=== PATIENT | male | born 1960 | race Caucasian/White ===

== ENCOUNTER 2016-11-16 06:01 | Day surgery (SDC) | payer MEDICARE, OTHER ==
[2016-11-15 09:52] LABS: ASPARTATE AMINO TRANSFERASE 13 U/L (15-37); BLOOD UREA NITROGEN 15 mg/dL (7-18)
[~2016-11-16] VITALS: Ht 190.5 cm; Wt 102.8 kg
[~2016-11-16 06:01] MED LIST: ACET325T14 PO; AMLO10TA2 PO; ATOR40TA PO; CARV-39 PO; GABA100C PO; GLIP10TA13 PO; INSU100V8 SQ; LOSA1TAB17 PO; METF500T4 PO; POTA20TA6 PO; SERT100T5 PO
[2016-11-16] MEDS ORDERED: LACTATED RINGERS 1,000 ML IV SCH (06:34)
[2016-11-16 06:37] VITALS: BP 135/77
[2016-11-16] MEDS ORDERED: BUPIVACAINE/PF 0.5% ONE (07:05)
[2016-11-16] MEDS ORDERED: FENTANYL PF 100 MCG/2ML ONE ×2 (07:16→08:55)
[2016-11-16] MEDS ORDERED: MIDAZOLAM 1 MG/ML, 2ML ONE (07:16)
[2016-11-16] MEDS ORDERED: PROMETHAZINE 25 MG/ML, 1ML IV PRN (07:30)
[2016-11-16] MEDS ORDERED: LABETALOL 5MG/ML, 20ML IV PRN (07:30)
[2016-11-16] MEDS ORDERED: hydrALAzine 20 MG/ML, 1ML IV PRN (07:30)
[2016-11-16] MEDS ORDERED: ALBUTEROL SULFATE 2.5 MG/3 ML NPPB PRN (07:30)
[2016-11-16] MEDS ORDERED: METOCLOPRAMIDE 5 MG/ML, 2ML IV PRN (07:30)
[2016-11-16] MEDS ORDERED: ONDANSETRON 2MG/ML, 2ML IVPush PRN (07:30)
[2016-11-16] MEDS ORDERED: FENTANYL PF 100 MCG/2ML IV PRN (07:30)
[2016-11-16] MEDS ORDERED: HYDROcodone/APAP 7.5-325MG/15ML UDC PO PRN (07:30)
[2016-11-16] MEDS ORDERED: OXYcodone 5 MG/5 ML ORAL.SOL UDC PO PRN (07:30)
[2016-11-16] MEDS ORDERED: METOPROLOL 1 MG/ML, 5ML IV PRN (07:30)
[2016-11-16] MEDS ORDERED: HYDROmorphone 1 MG/ML, 1ML IV PRN (07:30)
[2016-11-16] MEDS ORDERED: ACETAMINOPHEN 325 MG TABLET PO PRN (07:30)
[2016-11-16] MEDS ORDERED: KETOROLAC 30 MG/1 ML IV PRN (07:30)
[2016-11-16] MEDS ORDERED: EPHEDRINE 50 MG/ML, 1ML IVPush PRN (07:30)
[2016-11-16] MEDS ORDERED: PROPOFOL 10 MG/ML, 20ML ONE (07:35)
[2016-11-16] MEDS ORDERED: ROCURONIUM 10 MG/ML ONE (07:35)
[2016-11-16] MEDS ORDERED: DEXAMETHASONE 4 MG/ML, 1ML ONE (07:35)
[2016-11-16] MEDS ORDERED: ONDANSETRON 2MG/ML, 2ML ONE ×2 (07:35→08:43)
[2016-11-16] MEDS ORDERED: CEFAZOLIN 1,000 MG ONE (07:35)
[2016-11-16] MEDS ORDERED: SUCCINYLCHOLINE 20 MG/ML, 10ML ONE (07:35)
[2016-11-16] MEDS ORDERED: ACETAMINOPHEN 650 MG/20.3 ML UDC ONE (08:55)
[2016-11-16] MEDS ORDERED: OXYcodone 5 MG/5 ML ORAL.SOL UDC ONE (08:56)
[2016-11-16] MEDS ORDERED: HYDROcodone/APAP 5/325 TABLET ONE (10:11)
[2016-11-16] MEDS ORDERED: HYDROcodone/APAP 5/325 TABLET PO PRN (10:30)
== END 2016-11-16 11:10 ==
LOC: OUT 06:01
PROVIDERS: ATTEND Surgery Vascular Surgery
DX: E11.52 Type 2 diabetes mellitus with diabetic peripheral angiopathy with gangrene (principal); I73.9 Peripheral vascular disease, unspecified; F41.9 Anxiety disorder, unspecified; F32.9 Major depressive disorder, single episode, unspecified; E78.5 Hyperlipidemia, unspecified; I10 Essential (primary) hypertension; E03.9 Hypothyroidism, unspecified; Z87.440 Personal history of urinary (tract) infections; Z98.890 Other specified postprocedural states; Z72.89 Other problems related to lifestyle; Z87.891 Personal history of nicotine dependence
CPT/HCPCS: 28820; 36415; 80053; 82962; 88305; 88311; 93005; J0330; J0690; J1100; J2250; J2405; J2704; J3010; J3490; J7120

== ENCOUNTER 2016-12-16 11:48 | Day surgery (SDC) | payer MEDICARE ==
[2016-12-16] MEDS ORDERED: SODIUM CHLORIDE 0.9% 1,000 ML IV SCH (12:30)
[2016-12-16 12:33] VITALS: BP 124/82
[2016-12-16 12:57] LABS: HEMATOCRIT 52.6 % (39.2-51.8); HEMOGLOBIN 17.5 g/dL (13.7-18.0); WHITE BLOOD COUNT 14.7 x10^3/uL (3.4-10)
[2016-12-16] MEDS ORDERED: LIDOCAINE 2%, 20ML ONE (13:00)
[2016-12-16 13:01] LABS: BLOOD UREA NITROGEN 11 mg/dL (7-18)
[2016-12-16] MEDS ORDERED: NITROGLYCERIN 5 MG/ML, 10ML ONE (13:21)
[2016-12-16] MEDS ORDERED: MIDAZOLAM 1 MG/ML, 5ML ONE (13:21)
[2016-12-16] MEDS ORDERED: FLUMAZENIL 0.1 MG/1 ML, 5ML ONE (13:21)
[2016-12-16] MEDS ORDERED: FENTANYL PF 100 MCG/2ML ONE (13:21)
[2016-12-16] MEDS ORDERED: HEPARIN 1,000 UNITS/ML, 10ML ONE (13:22)
[2016-12-16] MEDS ORDERED: NALOXONE 1 MG/ML, 2ML ONE (13:22)
[2016-12-16] MEDS ORDERED: PROTAMINE SULFATE 10 MG/ML, 25ML ONE (13:22)
[2016-12-16 14:06] LABS: DIFF TOTAL CELLS COUNTED 200 CELL DIFF
[2016-12-16 14:07] LABS: SMUDGE CELLS 1+; VERIFY COUNTS? YES
[2016-12-16] MEDS ORDERED: VISIPAQUE 270 MG/ML, 150ML BOTTLE ONE (14:30)
== END 2016-12-16 18:50 | disposition home or self-care (01) ==
LOC: OUT 11:48
PROVIDERS: ATTEND Surgery Vascular Surgery
DX: I73.9 Peripheral vascular disease, unspecified (principal)
CPT/HCPCS: 36245; 36415; 75630; 76937; 80048; 85025; C1751; C1769; C1894; J2250; J3010; J3490; Q9966; J1644; J2720; J2310

== ENCOUNTER → 2017-01-10 | Outpatient (CLI) | payer MEDICARE ==
[~2017-01-10] MED LIST changes: +HYDR-3240 PO; -LOSA1TAB17 PO; +LOSA1TAB22 PO; +SULF1TAB24 PO
== END | disposition home or self-care (01) ==
LOC: WOUND 08:34
PROVIDERS: ATTEND Physician Assistant
DX: T81.31XD Disruption of external operation (surgical) wound, not elsewhere classified, subsequent encounter (principal); E11.621 Type 2 diabetes mellitus with foot ulcer; L97.521 Non-pressure chronic ulcer of other part of left foot limited to breakdown of skin; L97.421 Non-pressure chronic ulcer of left heel and midfoot limited to breakdown of skin; E11.51 Type 2 diabetes mellitus with diabetic peripheral angiopathy without gangrene; I10 Essential (primary) hypertension; F41.9 Anxiety disorder, unspecified; K21.9 Gastro-esophageal reflux disease without esophagitis; E78.5 Hyperlipidemia, unspecified; Z87.891 Personal history of nicotine dependence; Y83.8 Other surgical procedures as the cause of abnormal reaction of the patient, or of later complication, without mention of misadventure at the time of the procedure
CPT/HCPCS: 11042; 97597; G0463; WOU0463

== ENCOUNTER → 2017-01-14 | Outpatient (CLI) | payer MEDICARE | END | disposition home or self-care (01) | LOC: WOUND 10:59 | PROVIDERS: ATTEND Physician Assistant | DX: T81.31XD Disruption of external operation (surgical) wound, not elsewhere classified, subsequent encounter (principal); E11.621 Type 2 diabetes mellitus with foot ulcer; L97.421 Non-pressure chronic ulcer of left heel and midfoot limited to breakdown of skin; L97.521 Non-pressure chronic ulcer of other part of left foot limited to breakdown of skin; I10 Essential (primary) hypertension; F41.9 Anxiety disorder, unspecified; K21.9 Gastro-esophageal reflux disease without esophagitis; E78.5 Hyperlipidemia, unspecified; Z87.891 Personal history of nicotine dependence; E11.52 Type 2 diabetes mellitus with diabetic peripheral angiopathy with gangrene; Y83.8 Other surgical procedures as the cause of abnormal reaction of the patient, or of later complication, without mention of misadventure at the time of the procedure | CPT/HCPCS: 11044; 97597 ==

== ENCOUNTER → 2017-01-18 | Outpatient (CLI) | payer MEDICARE | END | disposition home or self-care (01) | LOC: CFH 12:12 | PROVIDERS: ATTEND Family Medicine | DX: I99.9 Unspecified disorder of circulatory system (principal); E11.621 Type 2 diabetes mellitus with foot ulcer | CPT/HCPCS: 71020 ==

== ENCOUNTER → 2017-01-28 | Outpatient (CLI) | payer MEDICARE | END | disposition home or self-care (01) | LOC: WOUND 10:20 | PROVIDERS: ATTEND Family Medicine | DX: T87.81 Dehiscence of amputation stump (principal); E11.621 Type 2 diabetes mellitus with foot ulcer; L97.421 Non-pressure chronic ulcer of left heel and midfoot limited to breakdown of skin; L97.521 Non-pressure chronic ulcer of other part of left foot limited to breakdown of skin; E11.52 Type 2 diabetes mellitus with diabetic peripheral angiopathy with gangrene; I10 Essential (primary) hypertension; F41.9 Anxiety disorder, unspecified; K21.9 Gastro-esophageal reflux disease without esophagitis; E78.5 Hyperlipidemia, unspecified; F17.200 Nicotine dependence, unspecified, uncomplicated; Z89.511 Acquired absence of right leg below knee; Y83.5 Amputation of limb(s) as the cause of abnormal reaction of the patient, or of later complication, without mention of misadventure at the time of the procedure | CPT/HCPCS: 97597 ==

== ENCOUNTER → 2017-02-04 | Outpatient (CLI) | payer MEDICARE | END | disposition home or self-care (01) | LOC: WOUND 10:42 | PROVIDERS: ATTEND Family Medicine | DX: T81.31XD Disruption of external operation (surgical) wound, not elsewhere classified, subsequent encounter (principal); E11.621 Type 2 diabetes mellitus with foot ulcer; L97.521 Non-pressure chronic ulcer of other part of left foot limited to breakdown of skin; L97.421 Non-pressure chronic ulcer of left heel and midfoot limited to breakdown of skin; I10 Essential (primary) hypertension; F41.9 Anxiety disorder, unspecified; K21.9 Gastro-esophageal reflux disease without esophagitis; E78.5 Hyperlipidemia, unspecified; E11.52 Type 2 diabetes mellitus with diabetic peripheral angiopathy with gangrene; Z89.511 Acquired absence of right leg below knee; Z87.891 Personal history of nicotine dependence; Y83.8 Other surgical procedures as the cause of abnormal reaction of the patient, or of later complication, without mention of misadventure at the time of the procedure | CPT/HCPCS: 11042; 97597 ==

== ENCOUNTER → 2017-02-11 | Outpatient (CLI) | payer MEDICARE | END | disposition home or self-care (01) | LOC: WOUND 10:48 | PROVIDERS: ATTEND Family Medicine | DX: T87.81 Dehiscence of amputation stump (principal); E11.621 Type 2 diabetes mellitus with foot ulcer; L97.521 Non-pressure chronic ulcer of other part of left foot limited to breakdown of skin; L97.421 Non-pressure chronic ulcer of left heel and midfoot limited to breakdown of skin; I10 Essential (primary) hypertension; K21.9 Gastro-esophageal reflux disease without esophagitis; E78.5 Hyperlipidemia, unspecified; E11.52 Type 2 diabetes mellitus with diabetic peripheral angiopathy with gangrene; F41.9 Anxiety disorder, unspecified; Z89.511 Acquired absence of right leg below knee; Z87.891 Personal history of nicotine dependence; Y83.5 Amputation of limb(s) as the cause of abnormal reaction of the patient, or of later complication, without mention of misadventure at the time of the procedure | CPT/HCPCS: 11042; 97597 ==

== ENCOUNTER → 2017-02-18 | Outpatient (CLI) | payer MEDICARE | END | disposition home or self-care (01) | LOC: WOUND 09:21 | PROVIDERS: ATTEND Family Medicine | DX: T81.31XD Disruption of external operation (surgical) wound, not elsewhere classified, subsequent encounter (principal); E11.621 Type 2 diabetes mellitus with foot ulcer; L97.521 Non-pressure chronic ulcer of other part of left foot limited to breakdown of skin; L97.421 Non-pressure chronic ulcer of left heel and midfoot limited to breakdown of skin; I10 Essential (primary) hypertension; E11.52 Type 2 diabetes mellitus with diabetic peripheral angiopathy with gangrene; E78.5 Hyperlipidemia, unspecified; F41.9 Anxiety disorder, unspecified; K21.9 Gastro-esophageal reflux disease without esophagitis; Z89.511 Acquired absence of right leg below knee; Z87.891 Personal history of nicotine dependence; Y83.8 Other surgical procedures as the cause of abnormal reaction of the patient, or of later complication, without mention of misadventure at the time of the procedure | CPT/HCPCS: 97597 ==

== ENCOUNTER → 2017-02-25 | Outpatient (CLI) | payer MEDICARE | END | disposition home or self-care (01) | LOC: WOUND 10:00 | PROVIDERS: ATTEND Family Medicine | DX: T87.89 Other complications of amputation stump (principal); E11.621 Type 2 diabetes mellitus with foot ulcer; L97.521 Non-pressure chronic ulcer of other part of left foot limited to breakdown of skin; L97.421 Non-pressure chronic ulcer of left heel and midfoot limited to breakdown of skin; I10 Essential (primary) hypertension; K21.9 Gastro-esophageal reflux disease without esophagitis; E78.5 Hyperlipidemia, unspecified; F41.9 Anxiety disorder, unspecified; E11.52 Type 2 diabetes mellitus with diabetic peripheral angiopathy with gangrene; Z87.891 Personal history of nicotine dependence; Z89.511 Acquired absence of right leg below knee; Y83.5 Amputation of limb(s) as the cause of abnormal reaction of the patient, or of later complication, without mention of misadventure at the time of the procedure | CPT/HCPCS: 11042 ==

== ENCOUNTER → 2017-03-04 | Outpatient (CLI) | payer MEDICARE | END | disposition home or self-care (01) | LOC: WOUND 09:52 | PROVIDERS: ATTEND Family Medicine | DX: T87.89 Other complications of amputation stump (principal); E11.621 Type 2 diabetes mellitus with foot ulcer; L97.521 Non-pressure chronic ulcer of other part of left foot limited to breakdown of skin; L97.421 Non-pressure chronic ulcer of left heel and midfoot limited to breakdown of skin; E11.52 Type 2 diabetes mellitus with diabetic peripheral angiopathy with gangrene; I10 Essential (primary) hypertension; F41.9 Anxiety disorder, unspecified; K21.9 Gastro-esophageal reflux disease without esophagitis; E78.5 Hyperlipidemia, unspecified; Z87.891 Personal history of nicotine dependence; Y83.5 Amputation of limb(s) as the cause of abnormal reaction of the patient, or of later complication, without mention of misadventure at the time of the procedure | CPT/HCPCS: 11042 ==

== ENCOUNTER → 2017-03-18 | Outpatient (CLI) | payer MEDICARE | END | disposition home or self-care (01) | LOC: WOUND 09:41 | PROVIDERS: ATTEND Family Medicine | DX: T87.89 Other complications of amputation stump (principal); E11.621 Type 2 diabetes mellitus with foot ulcer; L97.522 Non-pressure chronic ulcer of other part of left foot with fat layer exposed; L97.421 Non-pressure chronic ulcer of left heel and midfoot limited to breakdown of skin; L84 Corns and callosities; I10 Essential (primary) hypertension; F41.9 Anxiety disorder, unspecified; K21.9 Gastro-esophageal reflux disease without esophagitis; E78.5 Hyperlipidemia, unspecified; E11.52 Type 2 diabetes mellitus with diabetic peripheral angiopathy with gangrene; Z87.891 Personal history of nicotine dependence; Z89.412 Acquired absence of left great toe; Z89.511 Acquired absence of right leg below knee; Y83.5 Amputation of limb(s) as the cause of abnormal reaction of the patient, or of later complication, without mention of misadventure at the time of the procedure | CPT/HCPCS: 11042 ==

== ENCOUNTER → 2017-03-25 | Outpatient (CLI) | payer MEDICARE | END | disposition home or self-care (01) | LOC: WOUND 09:42 | PROVIDERS: ATTEND Family Medicine | DX: T81.31XD Disruption of external operation (surgical) wound, not elsewhere classified, subsequent encounter (principal); E11.621 Type 2 diabetes mellitus with foot ulcer; L97.521 Non-pressure chronic ulcer of other part of left foot limited to breakdown of skin; L97.421 Non-pressure chronic ulcer of left heel and midfoot limited to breakdown of skin; I10 Essential (primary) hypertension; E11.52 Type 2 diabetes mellitus with diabetic peripheral angiopathy with gangrene; K21.9 Gastro-esophageal reflux disease without esophagitis; E78.5 Hyperlipidemia, unspecified; F41.9 Anxiety disorder, unspecified; Z89.412 Acquired absence of left great toe; Z89.511 Acquired absence of right leg below knee; Z87.891 Personal history of nicotine dependence; Y83.8 Other surgical procedures as the cause of abnormal reaction of the patient, or of later complication, without mention of misadventure at the time of the procedure | CPT/HCPCS: 11042 ==

== ENCOUNTER → 2017-04-22 | Outpatient (CLI) | payer MEDICARE | END | disposition home or self-care (01) | LOC: WOUND 09:47 | PROVIDERS: ATTEND Family Medicine | DX: T87.89 Other complications of amputation stump (principal); E11.621 Type 2 diabetes mellitus with foot ulcer; L97.521 Non-pressure chronic ulcer of other part of left foot limited to breakdown of skin; I10 Essential (primary) hypertension; F41.9 Anxiety disorder, unspecified; K21.9 Gastro-esophageal reflux disease without esophagitis; E11.52 Type 2 diabetes mellitus with diabetic peripheral angiopathy with gangrene; L84 Corns and callosities; I96 Gangrene, not elsewhere classified; E78.5 Hyperlipidemia, unspecified; Z89.412 Acquired absence of left great toe; Z89.511 Acquired absence of right leg below knee; Z87.891 Personal history of nicotine dependence; Y83.5 Amputation of limb(s) as the cause of abnormal reaction of the patient, or of later complication, without mention of misadventure at the time of the procedure | CPT/HCPCS: 11042 ==

== ENCOUNTER → 2017-04-29 | Outpatient (CLI) | payer MEDICARE | END | disposition home or self-care (01) | LOC: WOUND 10:07 | PROVIDERS: ATTEND Family Medicine | DX: T87.89 Other complications of amputation stump (principal); E11.621 Type 2 diabetes mellitus with foot ulcer; L97.521 Non-pressure chronic ulcer of other part of left foot limited to breakdown of skin; E11.52 Type 2 diabetes mellitus with diabetic peripheral angiopathy with gangrene; I10 Essential (primary) hypertension; K21.9 Gastro-esophageal reflux disease without esophagitis; L84 Corns and callosities; E78.5 Hyperlipidemia, unspecified; F41.9 Anxiety disorder, unspecified; Z87.891 Personal history of nicotine dependence; Z89.511 Acquired absence of right leg below knee; Y83.5 Amputation of limb(s) as the cause of abnormal reaction of the patient, or of later complication, without mention of misadventure at the time of the procedure | CPT/HCPCS: 97597 ==

== ENCOUNTER → 2017-05-27 | Outpatient (CLI) | payer MEDICARE | END | disposition home or self-care (01) | LOC: WOUND 13:07 | PROVIDERS: ATTEND Family Medicine | DX: T81.31XD Disruption of external operation (surgical) wound, not elsewhere classified, subsequent encounter (principal); E11.621 Type 2 diabetes mellitus with foot ulcer; L97.521 Non-pressure chronic ulcer of other part of left foot limited to breakdown of skin; I10 Essential (primary) hypertension; F41.9 Anxiety disorder, unspecified; E11.52 Type 2 diabetes mellitus with diabetic peripheral angiopathy with gangrene; I96 Gangrene, not elsewhere classified; E78.5 Hyperlipidemia, unspecified; Z89.412 Acquired absence of left great toe; Z89.511 Acquired absence of right leg below knee; Z87.891 Personal history of nicotine dependence; Y83.8 Other surgical procedures as the cause of abnormal reaction of the patient, or of later complication, without mention of misadventure at the time of the procedure | CPT/HCPCS: 97597 ==

== ENCOUNTER → 2017-06-10 | Outpatient (CLI) | payer MEDICARE | END | disposition home or self-care (01) | LOC: WOUND 09:41 | PROVIDERS: ATTEND Family Medicine | DX: T87.89 Other complications of amputation stump (principal); T81.31XD Disruption of external operation (surgical) wound, not elsewhere classified, subsequent encounter; E11.621 Type 2 diabetes mellitus with foot ulcer; L97.521 Non-pressure chronic ulcer of other part of left foot limited to breakdown of skin; E11.51 Type 2 diabetes mellitus with diabetic peripheral angiopathy without gangrene; I96 Gangrene, not elsewhere classified; E78.5 Hyperlipidemia, unspecified; K21.9 Gastro-esophageal reflux disease without esophagitis; L84 Corns and callosities; F41.9 Anxiety disorder, unspecified; I10 Essential (primary) hypertension; Z87.891 Personal history of nicotine dependence; Y83.5 Amputation of limb(s) as the cause of abnormal reaction of the patient, or of later complication, without mention of misadventure at the time of the procedure; Y83.8 Other surgical procedures as the cause of abnormal reaction of the patient, or of later complication, without mention of misadventure at the time of the procedure | CPT/HCPCS: 97597 ==

== ENCOUNTER 2018-04-27 17:41 | Inpatient (IN) | payer MEDICARE ==
[~2018-04-27] VITALS: Ht 121.9 cm; Wt 107.2 kg
[~2018-04-27 17:41] MED LIST changes: -AMLO10TA2 PO; +AMLO10TA8 PO; +ASPI-650 PO; +CEFT600V IV; +HYDR-3241 PO; +HYDR2VIA2 IVPush; +INSU100I13 SQ-INSULIN; +METF500T17 PO; -METF500T4 PO; +SERT100T32 PO; -SERT100T5 PO; +TAMS-11 PO
[2018-04-27 18:33] LABS: MEAN CORPUSCULAR HEMOGLOBIN 21.7 pg (27.5-34.5); MEAN CORPUSCULAR HGB CONC 32.9 g/dL (33.2-36.2); MEAN CORPUSCULAR VOLUME 66.1 fL (81-97); MEAN PLATELET VOLUME 7.4 fL (7.4-10.4); PLATELET COUNT 602 x10^3/uL (130-400); RED BLOOD COUNT 7.23 x10^6/uL (4.38-5.82); RED CELL DISTRIBUTION WIDTH 19.2 % (9.4-14.8)
--- NOTE | 2018-04-27 18:38 | NUR ---
Pt reports intermitent scrotal swelling x2-3 weeks, prescribed Lasix on tuesday, has not taken any doses yet. Reports he has been urinating more often but otherwise not urinary symptoms. Reports sob upon exertion.
[2018-04-27 18:41] LABS: ALANINE AMINOTRANSFERASE 21 U/L (12-78); ALBUMIN 3.1 g/dL (3.4-5.0); ANION GAP 8 mmol/L (5-15); CALCIUM 7.7 mg/dL (8.5-10.1); CHLORIDE 99 mmol/L (98-107); CREATININE 0.97 mg/dL (0.7-1.3)
[2018-04-27 18:46] LABS: ALKALINE PHOSPHATASE 260 U/L (45-117); BILIRUBIN,TOTAL 0.9 mg/dL (0.2-1.0); MD YES; TROPONIN I < 0.015 ng/mL (0.000-0.045)
[2018-04-27 18:50] LABS: <PLATELET ESTIMATE> INCREASED; <PLT MORPHOLOGY> NORMAL PLT MORPH; BAND#(MANUAL) 1.79 x10^3/uL; BANDS%(MANUAL) 14 % (0-7); EOS#(MANUAL) 0.51 x10^3/uL (0.0-0.4); EOS% (MANUAL) 4 % (1-7); LYMPH#(MANUAL) 1.28 x10^3/uL (1-3.4); LYMPHS% (MANUAL) 10 % (22-44); METAMYELOCYTES# (MANUAL) 0.13 x10^3/uL (0-0); METAMYELOCYTES% (MANUAL) 1 % (0-1); MONOS#(MANUAL) 1.02 x10^3/uL (0.3-2.7); MONOS% (MANUAL) 8 % (2-9); MYELOCYTES# (MANUAL) 0.26 x10^3/uL (0-0); MYELOCYTES% (MANUAL) 2 % (0-0); SEG#(MANUAL) 7.81 x10^3/uL (1.8-6.8); SEGS% (MANUAL) 61 % (42-75)
[2018-04-27 18:51] LABS: ANISOCYTOSIS 2+; MICROCYTOSIS 2+; OVALOCYTES 1+; POLYCHROMASIA 1+
[2018-04-27] MEDS ORDERED: SODIUM CHLORIDE FLUSH 10ML SYR IVF ONE (19:00)
[2018-04-27] MEDS ORDERED: FUROSEMIDE 40 MG/4 ML ONE (19:26)
[2018-04-27] MEDS ORDERED: FUROSEMIDE 40 MG/4 ML IV ONE (19:30)
--- NOTE | 2018-04-27 19:56 | NUR ---
UA obtained, pt medicated per [facility]AR, 5 rights observed, pt to US at this time, family req to let pt drink coffee, pt and family aware of NPO until further notice
[2018-04-27 19:57] LABS: MICROSCOPIC AUTO
[2018-04-27 19:59] LABS: CULTURE INDICATED? NO
[2018-04-27] MEDS ORDERED: AMPICILLIN/SULBACTAM 3 GM in SODIUM CHLORIDE 0.9% 100 ML IV ONE (20:30)
--- NOTE | 2018-04-27 20:37 | NUR ---
BREAK RN: Dr. Yepez at bedside to evaluate pt for admission.
[2018-04-27] MEDS ORDERED: METF500T17 PO (20:42)
[2018-04-27] MEDS ORDERED: POTA20TA6 PO (20:42)
[2018-04-27] MEDS ORDERED: GLIP10TA13 PO (20:42)
[2018-04-27] MEDS ORDERED: ASPI-515 PO (20:42)
[2018-04-27] MEDS ORDERED: INSU100I13 SC (20:42)
--- NOTE | 2018-04-27 20:59 | NUR ---
Report to [facility], pt ready for transport.
[2018-04-27 21:25] VITALS: BP 171/79
[2018-04-27] MEDS: POTASSIUM CHLORIDE 20 MEQ TAB.ER.PRT PO SCH (21:43)
[2018-04-27] MEDS: FUROSEMIDE 20 MG/2 ML IVPush SCH (21:43)
[2018-04-27] MEDS: HEPARIN 5,000 UNITS/ML, 1ML SQ SCH (21:43)
[2018-04-27] MEDS: CARVEDILOL 25 MG TABLET PO SCH (21:44)
[2018-04-27 21:47] LABS: TROPONIN I < 0.015 ng/mL (0.000-0.045)
[2018-04-27 21:52] VITALS: BP 171/79
[2018-04-27] MEDS ORDERED: GABAPENTIN 100 MG CAPSULE PO ONE (22:30)
[2018-04-28 00:24] VITALS: BP 126/69
[2018-04-28 03:42] LABS: TROPONIN I < 0.015 ng/mL (0.000-0.045)
[2018-04-28] MEDS: HEPARIN 5,000 UNITS/ML, 1ML SQ SCH ×3 (05:13→20:27)
[2018-04-28] MEDS: CARVEDILOL 25 MG TABLET PO SCH ×2 (05:13→16:57)
[2018-04-28 08:52] LABS: MEAN CORPUSCULAR HEMOGLOBIN 21.3 pg (27.5-34.5); MEAN CORPUSCULAR VOLUME 66.6 fL (81-97); MEAN PLATELET VOLUME 7.3 fL (7.4-10.4); PLATELET COUNT 540 x10^3/uL (130-400); RED BLOOD COUNT 7.04 x10^6/uL (4.38-5.82); RED CELL DISTRIBUTION WIDTH 19.2 % (9.4-14.8)
[2018-04-28] MEDS: LOSARTAN 50MG TABLET PO SCH (08:57)
[2018-04-28] MEDS: GABAPENTIN 100 MG CAPSULE PO SCH ×3 (08:57→20:27)
[2018-04-28] MEDS: POTASSIUM CHLORIDE 20 MEQ TAB.ER.PRT PO SCH (08:57)
[2018-04-28] MEDS: SERTRALINE 100MG TABLET PO SCH (08:57)
[2018-04-28] MEDS: AMLODIPINE 10 MG TAB PO SCH (08:57)
[2018-04-28] MEDS: FUROSEMIDE 20 MG/2 ML IVPush SCH ×2 (08:57→20:26)
[2018-04-28] MEDS: ASPIRIN 81 MG TABLET EC PO SCH (08:57)
[2018-04-28] MEDS ORDERED: HYDROCHLOROTHIAZIDE 25 MG TABLET PO SCH (09:00)
[2018-04-28 09:04] LABS: ALANINE AMINOTRANSFERASE 19 U/L (12-78); ANION GAP 6 mmol/L (5-15); CHLORIDE 99 mmol/L (98-107); CREATININE 1.04 mg/dL (0.7-1.3)
[2018-04-28 09:07] LABS: ALKALINE PHOSPHATASE 227 U/L (45-117); TOTAL PROTEIN 5.9 g/dL (6.4-8.2)
[2018-04-28 09:09] LABS: TROPONIN I < 0.015 ng/mL (0.000-0.045)
[2018-04-28] MEDS: INSULIN GLARGINE 100 UNITS/ML, PEN SQ-INSULIN SCH (09:53)
[2018-04-28 10:04] LABS: MD YES
[2018-04-28 10:07] LABS: BAND#(MANUAL) 0.24 x10^3/uL; BANDS%(MANUAL) 2 % (0-7); EOS#(MANUAL) 0.12 x10^3/uL (0.0-0.4); EOS% (MANUAL) 1 % (1-7); LYMPHS% (MANUAL) 16 % (22-44); METAMYELOCYTES# (MANUAL) 0.12 x10^3/uL (0-0); METAMYELOCYTES% (MANUAL) 1 % (0-1); MONOS#(MANUAL) 0.83 x10^3/uL (0.3-2.7); MONOS% (MANUAL) 7 % (2-9); MYELOCYTES# (MANUAL) 0.24 x10^3/uL (0-0); MYELOCYTES% (MANUAL) 2 % (0-0)
[2018-04-28 10:21] LABS: BASOS#(MANUAL) 0.95 x10^3/uL (0-0.1); BASOS% (MANUAL) 8 % (0-1); SEGS% (MANUAL) 63 % (42-75)
[2018-04-28 10:22] LABS: NRBC % (MANUAL) 1 % (0-1)
[2018-04-28 10:23] LABS: <PLATELET ESTIMATE> INCREASED; <PLT MORPHOLOGY> NORMAL PLT MORPH; ANISOCYTOSIS 1+; MICROCYTOSIS 2+; OVALOCYTES 1+; POLYCHROMASIA 1+
[2018-04-28] MEDS ORDERED: DEXTROSE 50%, 50ML SYRINGE IVPush PRN (11:30)
[2018-04-28] MEDS ORDERED: DEXTROSE 4 GM TAB.CHEW PO PRN (11:30)
[2018-04-28] MEDS ORDERED: GLUCAGON 1 MG IM PRN (11:30)
[2018-04-28] MEDS: SODIUM CHLORIDE FLUSH 10ML SYR IVF SCH ×2 (11:30→20:27)
[2018-04-28] MEDS: INSULIN LISPRO 100 UNITS/ML, PEN SQ-INSULIN SCH ×3 (11:50→20:19)
[2018-04-28 14:00] VITALS: BP 134/80
[2018-04-28] MEDS ORDERED: LOPERAMIDE 2 MG CAPSULE PO PRN (20:00)
[2018-04-28] MEDS: ATORVASTATIN 40 MG TABLET PO SCH (20:27)
[2018-04-28 21:24] VITALS: BP 123/71
[2018-04-29 02:33] VITALS: BP 138/79
[2018-04-29 03:22] LABS: CREATININE,URINE RANDOM 13.5 mg/dL
[2018-04-29 05:04] LABS: ANION GAP 5 mmol/L (5-15); CALCIUM 8.1 mg/dL (8.5-10.1); CHLORIDE 100 mmol/L (98-107)
[2018-04-29 05:05] LABS: MEAN CORPUSCULAR HEMOGLOBIN 21.5 pg (27.5-34.5); MEAN CORPUSCULAR HGB CONC 32.5 g/dL (33.2-36.2); MEAN PLATELET VOLUME 7.4 fL (7.4-10.4); PLATELET COUNT 588 x10^3/uL (130-400); RED BLOOD COUNT 6.87 x10^6/uL (4.38-5.82); RED CELL DISTRIBUTION WIDTH 19.5 % (9.4-14.8)
[2018-04-29 05:08] LABS: ALANINE AMINOTRANSFERASE 15 U/L (12-78); ALKALINE PHOSPHATASE 195 U/L (45-117); BILIRUBIN,TOTAL 0.9 mg/dL (0.2-1.0); CREATININE 1.09 mg/dL (0.7-1.3); TOTAL PROTEIN 5.7 g/dL (6.4-8.2)
[2018-04-29] MEDS: HEPARIN 5,000 UNITS/ML, 1ML SQ SCH ×3 (05:15→21:27)
[2018-04-29] MEDS: CARVEDILOL 25 MG TABLET PO SCH ×2 (05:15→16:51)
[2018-04-29 05:56] LABS: MD YES
[2018-04-29 05:57] LABS: BAND#(MANUAL) 0.54 x10^3/uL; BANDS%(MANUAL) 4 % (0-7); EOS#(MANUAL) 0.27 x10^3/uL (0.0-0.4); EOS% (MANUAL) 2 % (1-7); METAMYELOCYTES# (MANUAL) 0.14 x10^3/uL (0-0); METAMYELOCYTES% (MANUAL) 1 % (0-1); MONOS#(MANUAL) 0.68 x10^3/uL (0.3-2.7); MONOS% (MANUAL) 5 % (2-9); SEGS% (MANUAL) 72 % (42-75)
[2018-04-29 05:58] LABS: BASOS#(MANUAL) 0.41 x10^3/uL (0-0.1); BASOS% (MANUAL) 3 % (0-1); LYMPH#(MANUAL) 1.76 x10^3/uL (1-3.4); LYMPHS% (MANUAL) 13 % (22-44); SEG#(MANUAL) 9.86 x10^3/uL (1.8-6.8)
[2018-04-29 05:59] LABS: ANISOCYTOSIS 1+; MICROCYTOSIS 2+; OVALOCYTES 1+; POLYCHROMASIA 1+
[2018-04-29 06:00] LABS: <PLATELET ESTIMATE> INCREASED; <PLT MORPHOLOGY> NORMAL PLT MORPH
[2018-04-29] MEDS: INSULIN LISPRO 100 UNITS/ML, PEN SQ-INSULIN SCH ×4 (07:00→21:00)
[2018-04-29] MEDS: ASPIRIN 81 MG TABLET EC PO SCH (08:33)
[2018-04-29] MEDS: GABAPENTIN 100 MG CAPSULE PO SCH ×3 (08:33→21:27)
[2018-04-29] MEDS: FUROSEMIDE 20 MG/2 ML IVPush SCH ×2 (08:34→16:54)
[2018-04-29] MEDS: AMLODIPINE 10 MG TAB PO SCH (08:34)
[2018-04-29] MEDS: SODIUM CHLORIDE FLUSH 10ML SYR IVF SCH ×2 (08:34→21:27)
[2018-04-29] MEDS: SERTRALINE 100MG TABLET PO SCH (08:39)
[2018-04-29] MEDS: INSULIN GLARGINE 100 UNITS/ML, PEN SQ-INSULIN SCH (08:40)
[2018-04-29 08:43] VITALS: BP 135/70
[2018-04-29] MEDS ORDERED: POTASSIUM CHLORIDE 20 MEQ TAB.ER.PRT PO ONE (09:00)
[2018-04-29 14:52] VITALS: BP 127/69
[2018-04-29] MEDS ORDERED: FUROSEMIDE 20 MG/2 ML ONE (16:48)
[2018-04-29 20:00] VITALS: BP 130/72
[2018-04-29] MEDS: ATORVASTATIN 40 MG TABLET PO SCH (21:27)
[2018-04-29] MEDS: LOSARTAN 50MG TABLET PO SCH (21:27)
[2018-04-30 01:53] VITALS: BP 158/75
[2018-04-30 05:11] LABS: MEAN CORPUSCULAR HEMOGLOBIN 21.9 pg (27.5-34.5); MEAN CORPUSCULAR VOLUME 66.3 fL (81-97); MEAN PLATELET VOLUME 7.2 fL (7.4-10.4); PLATELET COUNT 592 x10^3/uL (130-400); RED BLOOD COUNT 6.59 x10^6/uL (4.38-5.82); RED CELL DISTRIBUTION WIDTH 18.8 % (9.4-14.8)
[2018-04-30] MEDS: HEPARIN 5,000 UNITS/ML, 1ML SQ SCH (05:20)
[2018-04-30 05:21] LABS: ANION GAP 7 mmol/L (5-15); CALCIUM 7.8 mg/dL (8.5-10.1); CHLORIDE 100 mmol/L (98-107)
[2018-04-30] MEDS: CARVEDILOL 25 MG TABLET PO SCH (05:21)
[2018-04-30 05:23] LABS: CREATININE 1.02 mg/dL (0.7-1.3)
[2018-04-30 05:44] LABS: MD YES
[2018-04-30 05:46] LABS: BAND#(MANUAL) 0.53 x10^3/uL; BANDS%(MANUAL) 4 % (0-7); BASOS#(MANUAL) 0.53 x10^3/uL (0-0.1); BASOS% (MANUAL) 4 % (0-1); EOS#(MANUAL) 0.13 x10^3/uL (0.0-0.4); EOS% (MANUAL) 1 % (1-7); LYMPH#(MANUAL) 2.13 x10^3/uL (1-3.4); LYMPHS% (MANUAL) 16 % (22-44); METAMYELOCYTES% (MANUAL) 3 % (0-1); MONOS#(MANUAL) 0.67 x10^3/uL (0.3-2.7); MONOS% (MANUAL) 5 % (2-9); MYELOCYTES# (MANUAL) 0.13 x10^3/uL (0-0); MYELOCYTES% (MANUAL) 1 % (0-0); SEG#(MANUAL) 8.78 x10^3/uL (1.8-6.8); SEGS% (MANUAL) 66 % (42-75)
[2018-04-30 05:47] LABS: ANISOCYTOSIS 1+; MICROCYTOSIS 2+; OVALOCYTES 1+; POLYCHROMASIA 1+
[2018-04-30 05:48] LABS: <PLATELET ESTIMATE> INCREASED; <PLT MORPHOLOGY> NORMAL PLT MORPH
[2018-04-30] MEDS: INSULIN LISPRO 100 UNITS/ML, PEN SQ-INSULIN SCH (07:00)
[2018-04-30 07:32] VITALS: BP 125/61
[2018-04-30] MEDS ORDERED: INSULIN GLARGINE 100 UNITS/ML, PEN SQ-INSULIN SCH (08:00)
[2018-04-30] MEDS: SODIUM CHLORIDE FLUSH 10ML SYR IVF SCH (08:30)
[2018-04-30] MEDS: FUROSEMIDE 20 MG/2 ML IVPush SCH (08:30)
[2018-04-30] MEDS: AMLODIPINE 10 MG TAB PO SCH (08:30)
[2018-04-30] MEDS: SERTRALINE 100MG TABLET PO SCH (08:30)
[2018-04-30] MEDS: ASPIRIN 81 MG TABLET EC PO SCH (08:30)
[2018-04-30] MEDS: GABAPENTIN 100 MG CAPSULE PO SCH (08:30)
[2018-04-30] MEDS ORDERED: LOSA50TA2 PO (10:40)
[2018-04-30] MEDS ORDERED: INSU100I13 SQ-INSULIN (10:40)
[2018-04-30] MEDS ORDERED: FURO40TA6 PO (10:40)
[2018-04-30] MEDS ORDERED: POTASSIUM CHLORIDE 20 MEQ TAB.ER.PRT PO ONE (11:00)
== END 2018-04-30 13:00 | disposition home or self-care (01) | DRG 291 ==
LOC: ED 18:46 → EDIP 20:17 → 5SO 21:10
PROVIDERS: ADMIT Internal Medicine; ATTEND Internal Medicine
PROC: 0T9B70Z Drainage of Bladder with Drainage Device, Via Natural or Artificial Opening (ICD-10-PCS; principal; 2018-04-27)
DX: I11.0 Hypertensive heart disease with heart failure (principal); R65.11 Systemic inflammatory response syndrome (SIRS) of non-infectious origin with acute organ dysfunction; D75.81 Myelofibrosis; I50.813 Acute on chronic right heart failure; E11.51 Type 2 diabetes mellitus with diabetic peripheral angiopathy without gangrene; E11.649 Type 2 diabetes mellitus with hypoglycemia without coma; E78.00 Pure hypercholesterolemia, unspecified; E78.5 Hyperlipidemia, unspecified; I27.20 Pulmonary hypertension, unspecified; I50.9 Heart failure, unspecified; I87.2 Venous insufficiency (chronic) (peripheral); Z66 Do not resuscitate; Z87.01 Personal history of pneumonia (recurrent); Z87.891 Personal history of nicotine dependence; Z89.511 Acquired absence of right leg below knee; Z89.512 Acquired absence of left leg below knee; Z89.611 Acquired absence of right leg above knee; Z89.612 Acquired absence of left leg above knee; Z79.899 Other long term (current) drug therapy; Z79.82 Long term (current) use of aspirin
CPT/HCPCS: 36415; 74022; 76870; 80048; 80053; 81001; 82040; 82570; 82962; 83605; 83735; 83880; 84156; 84484; 85025; 87040; 93005; 93306; 99285; G0378; J0295; J1644; J1940; J1815

== ENCOUNTER → 2018-07-07 | Outpatient (CLI) | payer MEDICARE ==
[~2018-07-07] MED LIST changes: +ASPI-515 PO; +FURO40TA6 PO; +INSU100I13 SC; +LOSA50TA2 PO; +REGADENOSON 0.4 MG/5 ML SYRINGE ONE
== END | disposition home or self-care (01) ==
LOC: CFH 08:09
PROVIDERS: ATTEND Internal Medicine Cardiovascular Disease
DX: I70.208 Unspecified atherosclerosis of native arteries of extremities, other extremity (principal); I10 Essential (primary) hypertension
CPT/HCPCS: 78452; 93017; A9502; J2785

== ENCOUNTER 2019-10-19 05:52 | Day surgery (SDC) | payer MEDICARE ==
[~2019-10-19] VITALS: Ht 188 cm; Wt 106.7 kg
[~2019-10-19 05:52] MED LIST changes: -REGADENOSON 0.4 MG/5 ML SYRINGE ONE
[2019-10-19 07:00] VITALS: BP 139/67
[2019-10-19] MEDS ORDERED: GABA300C PO (07:00)
[2019-10-19] MEDS ORDERED: INSU100V8 SQ (07:00)
[2019-10-19] MEDS ORDERED: SODIUM CHLORIDE 0.9% 1,000 ML IV SCH (07:00)
[2019-10-19] MEDS ORDERED: SPIR25TA5 PO (07:00)
[2019-10-19] MEDS ORDERED: LEVO100T5 PO (07:00)
[2019-10-19] MEDS ORDERED: furosemide PO (07:00)
[2019-10-19] MEDS ORDERED: AMLO-150 PO (07:00)
[2019-10-19] MEDS ORDERED: CARV-39 PO (07:00)
[2019-10-19] MEDS ORDERED: SERT100T32 PO (07:00)
[2019-10-19] MEDS ORDERED: RUXO20TA PO (07:00)
[2019-10-19] MEDS ORDERED: LOSA100T14 PO (07:00)
[2019-10-19] MEDS ORDERED: iron PO (07:00)
[2019-10-19] MEDS ORDERED: ASPI-496 PO (07:00)
[2019-10-19 07:30] LABS: INTERNATIONAL NORMALIZED RATIO 1.13 (0.93-1.1); PROTHROMBIN TIME 11.7 Seconds (9.6-11.5)
[2019-10-19] MEDS ORDERED: FENTANYL PF 100 MCG/2ML ONE (08:13)
[2019-10-19] MEDS ORDERED: NALOXONE 1 MG/ML, 2ML ONE (08:13)
[2019-10-19] MEDS ORDERED: FLUMAZENIL 0.1 MG/1 ML, 5ML ONE (08:13)
[2019-10-19] MEDS ORDERED: MIDAZOLAM 1 MG/ML, 5ML ONE (08:13)
== END 2019-10-19 09:45 | disposition home or self-care (01) ==
LOC: OUT 05:52
PROVIDERS: ATTEND Internal Medicine Nephrology
DX: N17.9 Acute kidney failure, unspecified (principal); I13.0 Hypertensive heart and chronic kidney disease with heart failure and stage 1 through stage 4 chronic kidney disease, or unspecified chronic kidney disease; E11.22 Type 2 diabetes mellitus with diabetic chronic kidney disease; I50.9 Heart failure, unspecified; N18.3 Chronic kidney disease, stage 3 (moderate); E78.5 Hyperlipidemia, unspecified; E66.3 Overweight; Z68.37 Body mass index [BMI] 37.0-37.9, adult; Z88.8 Allergy status to other drugs, medicaments and biological substances; Z88.5 Allergy status to narcotic agent; Z79.899 Other long term (current) drug therapy; Z87.891 Personal history of nicotine dependence; Z79.82 Long term (current) use of aspirin
CPT/HCPCS: 36415; 50200; 77012; 85610; 88300; 99156; 99157; J2250; J3010; J2310

== ENCOUNTER 2020-01-30 11:08 | Outpatient (CLI) | payer MEDICARE ==
[~2020-01-30 11:08] MED LIST changes: +AMLO-150 PO; +AMLO-211 PO; -AMLO10TA8 PO; +ASPI-496 PO; -ASPI-515 PO; -ASPI-650 PO; +ASPI-963 PO; +ASPI325T20 PO; +ASPI81TA45 PO; +ATOR40TA78 PO; +CARV25TA12 PO; +CLOP75TA PO; +EZET10TA48 PO; +GABA300C PO; +HYDR-1067 PO; -HYDR-3240 PO; +LEVO100T PO; +LEVO100T5 PO; +LOSA100T14 PO; +RUXO20TA PO; +SPIR25TA5 PO; +furosemide PO; +iron PO
[2020-01-30] MEDS ORDERED: INSU100I13 SC (12:00)
[2020-01-30] MEDS ORDERED: EZET10TA70 PO (12:00)
[2020-01-30] MEDS ORDERED: LEVO175T2 PO (12:00)
[2020-01-30] MEDS ORDERED: ATOR40TA78 PO (12:00)
[2020-01-30] MEDS ORDERED: CARV-39 PO (12:00)
[2020-01-30 12:59] LABS: MEAN CORPUSCULAR HEMOGLOBIN 24.2 pg (27.5-34.5); MEAN CORPUSCULAR HGB CONC 33.3 g/dL (33.2-36.2); MEAN PLATELET VOLUME 8.2 fL (7.4-10.4); PLATELET COUNT 192 x10^3/uL (130-400); RED BLOOD COUNT 6.09 x10^6/uL (4.38-5.82); RED CELL DISTRIBUTION WIDTH 18.9 % (9.4-14.8)
[2020-01-30 13:01] LABS: ALANINE AMINOTRANSFERASE 19 U/L (12-78); ALBUMIN 2.8 g/dL (3.4-5.0); ANION GAP 7 mmol/L (5-15); CALCIUM 7.7 mg/dL (8.5-10.1); CHLORIDE 104 mmol/L (98-107); CREATININE 1.59 mg/dL (0.7-1.3)
[2020-01-30 13:03] LABS: ALKALINE PHOSPHATASE 169 U/L (45-117); BILIRUBIN,TOTAL 0.6 mg/dL (0.2-1.0); TOTAL PROTEIN 5.7 g/dL (6.4-8.2)
[2020-01-30 13:33] LABS: MD YES
[2020-01-30 13:38] LABS: BAND#(MANUAL) 1.47 x10^3/uL; BANDS%(MANUAL) 16 % (0-7); BASOS#(MANUAL) 0.46 x10^3/uL (0-0.1); BASOS% (MANUAL) 5 % (0-1); EOS#(MANUAL) 0.09 x10^3/uL (0.0-0.4); EOS% (MANUAL) 1 % (1-7); LYMPH#(MANUAL) 1.56 x10^3/uL (1-3.4); LYMPHS% (MANUAL) 17 % (22-44); METAMYELOCYTES# (MANUAL) 0.46 x10^3/uL (0-0); METAMYELOCYTES% (MANUAL) 5 % (0-1); MONOS#(MANUAL) 0.46 x10^3/uL (0.3-2.7); MONOS% (MANUAL) 5 % (2-9); MYELOCYTES# (MANUAL) 0.46 x10^3/uL (0-0); MYELOCYTES% (MANUAL) 5 % (0-0); REACTIVE LYMPHS # (MANUAL) 0.09 x10^3/uL (0-0); REACTIVE LYMPHS % (MANUAL) 1 % (0-0); SEG#(MANUAL) 4.14 x10^3/uL (1.8-6.8); SEGS% (MANUAL) 45 % (42-75)
[2020-01-30 13:43] LABS: ANISOCYTOSIS 1+; MICROCYTOSIS 1+
[2020-01-30 13:44] LABS: <PLATELET ESTIMATE> ADEQUATE; <PLT MORPHOLOGY> NORMAL PLT MORPH; OVALOCYTES 1+; TEAR DROPS 1+
[2020-02-19] MEDS ORDERED: HYDR-1067 PO (10:51)
== END 2020-01-30 23:59 | disposition home or self-care (01) ==
LOC: STAR 11:08
PROVIDERS: ATTEND Family Medicine
DX: Z01.812 Encounter for preprocedural laboratory examination (principal); Z20.828 Contact with and (suspected) exposure to other viral communicable diseases
CPT/HCPCS: 36415; 80053; 85025; 87635

== ENCOUNTER 2020-02-04 10:00 | Inpatient (IN) | payer MEDICARE ==
[~2020-02-04] VITALS: Ht 188 cm; Wt 94.9 kg
[~2020-02-04 10:00] MED LIST changes: +ASPI-515 PO; +ASPI-650 PO; -ASPI-963 PO; -ASPI325T20 PO; +EZET10TA70 PO; -HYDR-1067 PO; +HYDR-3240 PO; +LEVO175T2 PO
[2020-02-18] MEDS ORDERED: BACITRACIN 50,000 UNIT ONE (06:57)
[2020-02-18] MEDS ORDERED: BUPIVACAINE/PF-EPI 0.5% 1:200K ONE (06:57)
[2020-02-18] MEDS ORDERED: PROTAMINE SULFATE 10 MG/ML, 5ML ONE (06:57)
[2020-02-18] MEDS ORDERED: THROMBIN 5,000 UNIT VIAL TP ONE (06:57)
[2020-02-18] MEDS ORDERED: LIDOCAINE 1%, 20ML ONE (06:57)
[2020-02-18] MEDS ORDERED: HEPARIN 1,000 UNITS/ML, 10ML ONE (06:57)
[2020-02-18 07:20] VITALS: BP 148/90
[2020-02-18] MEDS ORDERED: LACTATED RINGERS 1,000 ML IV SCH (07:30)
[2020-02-18] MEDS ORDERED: CHLORHEXIDINE 15 ML UDC MM ONE (07:30)
[2020-02-18] MEDS ORDERED: IRON PO (07:50)
[2020-02-18] MEDS ORDERED: COLC0.6T37 PO (07:50)
[2020-02-18] MEDS ORDERED: FENTANYL PF 100 MCG/2ML ONE ×2 (08:01→11:21)
[2020-02-18] MEDS ORDERED: MIDAZOLAM 1 MG/ML, 2ML ONE (08:01)
[2020-02-18] MEDS ORDERED: MEPERIDINE/PF 25MG/0.5ML IVPush PRN (08:30)
[2020-02-18] MEDS ORDERED: LABETALOL 5MG/ML, 20ML IV PRN (08:30)
[2020-02-18] MEDS ORDERED: ONDANSETRON 2MG/ML, 2ML IVPush PRN (08:30)
[2020-02-18] MEDS ORDERED: SODIUM CHLORIDE 0.9% 1,000 ML IV SCH (08:30)
[2020-02-18] MEDS ORDERED: PROPOFOL 10 MG/ML, 20ML ONE (08:32)
[2020-02-18] MEDS ORDERED: ONDANSETRON 2MG/ML, 2ML ONE (08:32)
[2020-02-18] MEDS ORDERED: CEFAZOLIN 1,000 MG ONE (08:32)
[2020-02-18] MEDS ORDERED: HEPARIN 1,000 UNITS/ML, 10ML IV ONE (08:54)
[2020-02-18] MEDS ORDERED: BACITRACIN 50,000 UNIT IRRIG ONE (08:54)
[2020-02-18] MEDS ORDERED: BUPIVACAINE/PF-EPI 0.5% 1:200K INFIL ONE (08:54)
[2020-02-18] MEDS ORDERED: ACETAMINOPHEN 650 MG/20.3 ML UDC ONE (10:20)
[2020-02-18] MEDS ORDERED: OXYcodone 5 MG/5 ML ORAL.SOL UDC ONE ×2 (10:20→11:21)
[2020-02-18] MEDS: OXYcodone 5 MG/5 ML ORAL.SOL UDC PO PRN ×2 (10:22→11:23)
[2020-02-18] MEDS ORDERED: ACETAMINOPHEN 650 MG/20.3 ML UDC PO PRN (10:30)
[2020-02-18] MEDS: FENTANYL PF 100 MCG/2ML IV PRN ×2 (11:25→12:09)
[2020-02-18 13:04] VITALS: BP 158/81
[2020-02-18] MEDS ORDERED: MEPERIDINE/PF 50 MG/ML IV PRN (14:00)
[2020-02-18] MEDS ORDERED: LABETALOL 5MG/ML, 20ML IVPush PRN (14:00)
[2020-02-18] MEDS ORDERED: ONDANSETRON 2MG/ML, 2ML IV PRN (14:00)
[2020-02-18] MEDS: HYDROcodone/APAP 5/325 TABLET PO PRN ×3 (15:20→23:36)
[2020-02-18] MEDS: SODIUM CHLORIDE 0.9% 1,000 ML IV SCH (15:22)
[2020-02-18] MEDS: CEFAZOLIN PMX 1GM/50ML 50 ML IVPB SCH (16:12)
[2020-02-18 17:05] VITALS: BP 134/75
[2020-02-18 19:05] VITALS: BP 130/68
[2020-02-18] MEDS: INSULIN REGULAR, HUMAN 100 UNIT/ML 3ML VIAL LOW DOSE SS SQ-INSULIN SCH (21:00)
[2020-02-18] MEDS ORDERED: EZETIMIBE 10 MG TABLET PO SCH (21:00)
[2020-02-19] MEDS: CEFAZOLIN PMX 1GM/50ML 50 ML IVPB SCH (01:29)
[2020-02-19] MEDS ORDERED: MEPERIDINE/PF 100 MG/ML ONE (01:33)
[2020-02-19 03:29] VITALS: BP 152/77
[2020-02-19] MEDS: SODIUM CHLORIDE 0.9% 1,000 ML IV SCH (04:37)
[2020-02-19] MEDS: HYDROcodone/APAP 5/325 TABLET PO PRN ×2 (04:37→09:20)
[2020-02-19] MEDS ORDERED: LEVOTHYROXINE 175 MCG TABLET PO SCH (06:00)
[2020-02-19] MEDS ORDERED: CARVEDILOL 25 MG TABLET PO SCH (06:00)
[2020-02-19] MEDS ORDERED: ASPIRIN 81 MG TABLET EC PO SCH (06:00)
[2020-02-19 07:17] VITALS: BP 142/70
[2020-02-19] MEDS: INSULIN REGULAR, HUMAN 100 UNIT/ML 3ML VIAL LOW DOSE SS SQ-INSULIN SCH (07:41)
[2020-02-19] MEDS ORDERED: FERROUS SULFATE 325 MG TABLET PO SCH (09:00)
[2020-02-19] MEDS ORDERED: COLCHICINE 0.6 MG CAPSULE PO SCH (09:00)
[2020-02-19] MEDS ORDERED: SERTRALINE 100MG TABLET PO SCH (09:00)
[2020-02-19] MEDS ORDERED: AMLODIPINE 10 MG TAB PO SCH (09:00)
[2020-02-19] MEDS ORDERED: HYDR-3240 PO (10:51)
== END 2020-02-19 11:20 | disposition home or self-care (01) | DRG 38 ==
LOC: EDSTATUS 10:00 → ORIP 02-18 06:10 → EDSTATUS 02-18 09:30 → 4NE 02-18 13:36 → DCLOUNGE 02-19 11:15
PROVIDERS: ADMIT Surgery; ATTEND Surgery Vascular Surgery
PROC: 03CL0ZZ Extirpation of Matter from Left Internal Carotid Artery, Open Approach (ICD-10-PCS; 2020-02-18)
PROC: 03CN0ZZ Extirpation of Matter from Left External Carotid Artery, Open Approach (ICD-10-PCS; 2020-02-18)
PROC: 03UL0KZ Supplement Left Internal Carotid Artery with Nonautologous Tissue Substitute, Open Approach (ICD-10-PCS; 2020-02-18)
PROC: 03UN0KZ Supplement Left External Carotid Artery with Nonautologous Tissue Substitute, Open Approach (ICD-10-PCS; 2020-02-18)
PROC: 03CJ0ZZ Extirpation of Matter from Left Common Carotid Artery, Open Approach (ICD-10-PCS; principal; 2020-02-18 08:30)
DX: I65.22 Occlusion and stenosis of left carotid artery (principal); D75.81 Myelofibrosis; Z88.5 Allergy status to narcotic agent; Z88.8 Allergy status to other drugs, medicaments and biological substances; I10 Essential (primary) hypertension; M10.9 Gout, unspecified; D50.9 Iron deficiency anemia, unspecified; E11.51 Type 2 diabetes mellitus with diabetic peripheral angiopathy without gangrene; E03.9 Hypothyroidism, unspecified; K21.9 Gastro-esophageal reflux disease without esophagitis
CPT/HCPCS: 36415; 82962; 86850; 86900; 95938; 95941; C1729; G0378; J0690; J1644; J2175; J2250; J2405; J2704; J2720; J3010; C1768; J7030; J7120

== ENCOUNTER 2020-05-16 11:16 | Emergency (ER) | payer MEDICARE ==
[~2020-05-16] VITALS: Ht 152.4 cm; Wt 90.0 kg
[~2020-05-16 11:16] MED LIST changes: -ASPI-515 PO; -ASPI-650 PO; +ASPI-963 PO; +ASPI325T20 PO; +COLC0.6T37 PO; +HYDR-1067 PO; -HYDR-3240 PO; +IRON PO
[2020-05-16 12:06] LABS: MEAN CORPUSCULAR HEMOGLOBIN 23.9 pg (27.5-34.5); MEAN CORPUSCULAR HGB CONC 32.2 g/dL (33.2-36.2); PLATELET COUNT 235 x10^3/uL (130-400); RED BLOOD COUNT 5.72 x10^6/uL (4.38-5.82); RED CELL DISTRIBUTION WIDTH 18.6 % (9.4-14.8)
[2020-05-16 12:09] LABS: CHLORIDE 107 mmol/L (98-107)
[2020-05-16 12:22] LABS: ALANINE AMINOTRANSFERASE 8 U/L (12-78); ALBUMIN 2.3 g/dL (3.4-5.0); ANION GAP 7 mmol/L (5-15); CALCIUM 7.9 mg/dL (8.5-10.1); CREATININE 1.52 mg/dL (0.7-1.3)
[2020-05-16 12:26] LABS: ALKALINE PHOSPHATASE 125 U/L (45-117); BILIRUBIN,TOTAL 0.5 mg/dL (0.2-1.0); TOTAL PROTEIN 5.1 g/dL (6.4-8.2); TROPONIN I < 0.015 ng/mL (0.000-0.045)
[2020-05-16 12:51] LABS: MD YES
[2020-05-16 13:12] LABS: BAND#(MANUAL) 0.85 x10^3/uL; BANDS%(MANUAL) 8 % (0-7); BASOS#(MANUAL) 0.95 x10^3/uL (0-0.1); BASOS% (MANUAL) 9 % (0-1); EOS#(MANUAL) 0.64 x10^3/uL (0.0-0.4); EOS% (MANUAL) 6 % (1-7); LYMPHS% (MANUAL) 16 % (22-44); METAMYELOCYTES# (MANUAL) 0.42 x10^3/uL (0-0); METAMYELOCYTES% (MANUAL) 4 % (0-1); MONOS#(MANUAL) 0.74 x10^3/uL (0.3-2.7); MONOS% (MANUAL) 7 % (2-9); MYELOCYTES# (MANUAL) 0.21 x10^3/uL (0-0); MYELOCYTES% (MANUAL) 2 % (0-0); PROGRANULOCYTES# (MANUAL) 0.11 x10^3/uL (0-0); PROGRANULOCYTES% (MANUAL) 1 % (0-0); SEG#(MANUAL) 4.98 x10^3/uL (1.8-6.8); SEGS% (MANUAL) 47 % (42-75)
[2020-05-16 13:13] LABS: <PLATELET ESTIMATE> ADEQUATE; GIANT PLATELETS 1+
[2020-05-16 13:14] LABS: ANISOCYTOSIS 1+; MICROCYTOSIS 1+; OVALOCYTES 1+; POLYCHROMASIA 1+; TEAR DROPS 1+
[2020-05-16] MEDS ORDERED: FUROSEMIDE 40 MG TABLET PO ONE (14:00)
[2020-05-16] MEDS ORDERED: FUROSEMIDE 40 MG TABLET ONE (14:05)
[2020-05-16 14:07] VITALS: BP 179/93
== END 2020-05-16 14:58 | disposition home or self-care (01) ==
LOC: ED 12:22
DX: I11.0 Hypertensive heart disease with heart failure (principal); I50.9 Heart failure, unspecified; I49.1 Atrial premature depolarization; R06.02 Shortness of breath; R06.00 Dyspnea, unspecified; E11.9 Type 2 diabetes mellitus without complications; E78.00 Pure hypercholesterolemia, unspecified; Z85.9 Personal history of malignant neoplasm, unspecified; Z86.73 Personal history of transient ischemic attack (TIA), and cerebral infarction without residual deficits; Z87.891 Personal history of nicotine dependence
CPT/HCPCS: 36415; 71045; 80053; 82962; 83880; 84484; 85025; 93005; 99285

== ENCOUNTER 2020-05-29 14:55 | Inpatient (IN) | payer MEDICARE ==
[~2020-05-29] VITALS: Ht 182.9 cm; Wt 106.4 kg
--- NOTE | 2020-05-29 15:38 | NUR ---
THIS IS A 59 YR OLD MALE WITH HX OF CHF. PT WAS SEEN HERE RECENTLY FOR THE SAME. PT PRESENTS TO ER WITH SEVERE SCROTAL EDEMA, SWOLLEN ABDOMEN A INCREASE IN SOB. PT PLACED ON CARDIAC, NIBP AND O2 MONITORING.
[2020-05-29 16:22] LABS: MEAN CORPUSCULAR HEMOGLOBIN 23.4 pg (27.5-34.5); MEAN PLATELET VOLUME 8.3 fL (7.4-10.4); PLATELET COUNT 248 x10^3/uL (130-400); RED BLOOD COUNT 5.75 x10^6/uL (4.38-5.82); RED CELL DISTRIBUTION WIDTH 18.6 % (9.4-14.8)
[2020-05-29 16:32] LABS: ALANINE AMINOTRANSFERASE 10 U/L (12-78); ALBUMIN 2.5 g/dL (3.4-5.0); ANION GAP 7 mmol/L (5-15); CALCIUM 7.5 mg/dL (8.5-10.1); CHLORIDE 105 mmol/L (98-107); CREATININE 1.81 mg/dL (0.7-1.3)
[2020-05-29 16:48] LABS: ALKALINE PHOSPHATASE 149 U/L (45-117); BILIRUBIN,TOTAL 0.4 mg/dL (0.2-1.0); TOTAL PROTEIN 5.4 g/dL (6.4-8.2); TROPONIN I < 0.015 ng/mL (0.000-0.045)
[2020-05-29 17:04] LABS: MD YES
[2020-05-29 17:26] LABS: BAND#(MANUAL) 2.11 x10^3/uL; BANDS%(MANUAL) 17 % (0-7); BASOS#(MANUAL) 0.25 x10^3/uL (0-0.1); BASOS% (MANUAL) 2 % (0-1); EOS#(MANUAL) 0.12 x10^3/uL (0.0-0.4); EOS% (MANUAL) 1 % (1-7); LYMPH#(MANUAL) 0.99 x10^3/uL (1-3.4); LYMPHS% (MANUAL) 8 % (22-44); METAMYELOCYTES# (MANUAL) 1.24 x10^3/uL (0-0); METAMYELOCYTES% (MANUAL) 10 % (0-1); MONOS#(MANUAL) 0.25 x10^3/uL (0.3-2.7); MONOS% (MANUAL) 2 % (2-9); MYELOCYTES# (MANUAL) 0.37 x10^3/uL (0-0); MYELOCYTES% (MANUAL) 3 % (0-0); REACTIVE LYMPHS # (MANUAL) 0.25 x10^3/uL (0-0); REACTIVE LYMPHS % (MANUAL) 2 % (0-0); SEG#(MANUAL) 6.57 x10^3/uL (1.8-6.8); SEGS% (MANUAL) 53 % (42-75)
[2020-05-29 17:27] LABS: OTHER CELLS # (MANUAL) 0.25 x10^3/uL (0-0); OTHER CELLS % (MANUAL) 2 % (0-0)
[2020-05-29 17:32] LABS: ANISOCYTOSIS 1+; MICROCYTOSIS 1+
[2020-05-29 17:33] LABS: <PLATELET ESTIMATE> ADEQUATE; <PLT MORPHOLOGY> NORMAL PLT MORPH; OVALOCYTES 1+; POLYCHROMASIA 1+; TEAR DROPS 1+
--- NOTE | 2020-05-29 17:38 | NUR ---
DISCHARGE ORDER PUT IN ERROR. CLARIFIED WITH PROVIDER POC TO ADMIT. PT AGREES WITH POC
[2020-05-29] MEDS ORDERED: FUROSEMIDE 40 MG/4 ML IV ONE (18:30)
[2020-05-29] MEDS ORDERED: POTASSIUM CHLORIDE 20 MEQ PACKET PO ONE (18:30)
[2020-05-29] MEDS ORDERED: CALCIUM CARBONATE 500 MG TABLET PO ONE (18:30)
[2020-05-29] MEDS ORDERED: POTASSIUM CHLORIDE 20 MEQ PACKET ONE (18:37)
[2020-05-29] MEDS ORDERED: FUROSEMIDE 20 MG/2 ML ONE ×2 (18:37→18:46)
[2020-05-29] MEDS ORDERED: POLYETHYLENE GLYCOL 17 GM PACKET PO PRN (20:00)
[2020-05-29] MEDS ORDERED: BISACODYL 10 MG SUPP PR PRN (20:00)
[2020-05-29] MEDS ORDERED: ONDANSETRON ODT 4 MG PO PRN (20:00)
[2020-05-29 20:12] LABS: MICROSCOPIC AUTO
--- NOTE | 2020-05-29 20:26 | NUR ---
PT A&OX4, SITTING IN BED WATCHING TV. PT WITH HISTORY OF CHF,AND SWELLING NOTED TO HANDS AND LOWER EXTREMITIES AND HAS SWOLLEN TESTICLES WELL. PT USES 2-3 WORD SENTENCES WITH HIS BREATHING. GOOD AERATION AND OXYGENATION.
--- NOTE | 2020-05-29 20:40 | NUR ---
REPORT CALLED TO [facility] ON THE FLOOR FOR PTS REPORT. PT A&OX4, AND UPDATED TO TRANSFER TO FLOOR BED.
[2020-05-29 20:59] VITALS: BP 185/84
[2020-05-29] MEDS: RUXOLITINIB PHOSPHATE 15 MG PO SCH (21:00)
[2020-05-29] MEDS: ATORVASTATIN 40 MG TABLET PO SCH (22:06)
[2020-05-29] MEDS: EZETIMIBE 10 MG TABLET PO SCH (22:07)
[2020-05-29] MEDS: ACETAMINOPHEN 325 MG TABLET PO PRN (22:07)
[2020-05-29] MEDS: CARVEDILOL 25 MG TABLET PO SCH (22:08)
[2020-05-29] MEDS: SODIUM CHLORIDE FLUSH 10ML SYR IVF SCH (22:08)
[2020-05-29] MEDS: HEPARIN 5,000 UNITS/ML, 1ML SQ SCH (22:11)
[2020-05-29] MEDS: INSULIN GLARGINE 100 UNITS/ML, PEN SQ-INSULIN SCH (22:21)
[2020-05-29 22:37] VITALS: BP 167/90
[2020-05-30 02:05] VITALS: BP 156/77
[2020-05-30 05:20] LABS: MEAN CORPUSCULAR HEMOGLOBIN 24.2 pg (27.5-34.5); MEAN CORPUSCULAR HGB CONC 32.8 g/dL (33.2-36.2); PLATELET COUNT 209 x10^3/uL (130-400); RED BLOOD COUNT 4.84 x10^6/uL (4.38-5.82); RED CELL DISTRIBUTION WIDTH 18.5 % (9.4-14.8)
[2020-05-30] MEDS: LEVOTHYROXINE 175 MCG TABLET PO SCH (05:28)
[2020-05-30] MEDS: HEPARIN 5,000 UNITS/ML, 1ML SQ SCH ×3 (05:28→20:18)
[2020-05-30 05:32] LABS: ANION GAP 4 mmol/L (5-15); CALCIUM 7.5 mg/dL (8.5-10.1); CHLORIDE 106 mmol/L (98-107)
[2020-05-30 06:12] LABS: MD YES
[2020-05-30 06:18] LABS: BAND#(MANUAL) 0.82 x10^3/uL; BANDS%(MANUAL) 9 % (0-7); BASOS#(MANUAL) 0.18 x10^3/uL (0-0.1); BASOS% (MANUAL) 2 % (0-1); EOS#(MANUAL) 0.36 x10^3/uL (0.0-0.4); EOS% (MANUAL) 4 % (1-7); LYMPH#(MANUAL) 1.73 x10^3/uL (1-3.4); LYMPHS% (MANUAL) 19 % (22-44); METAMYELOCYTES# (MANUAL) 0.46 x10^3/uL (0-0); METAMYELOCYTES% (MANUAL) 5 % (0-1); MONOS#(MANUAL) 0.27 x10^3/uL (0.3-2.7); MONOS% (MANUAL) 3 % (2-9); MYELOCYTES# (MANUAL) 0.27 x10^3/uL (0-0); MYELOCYTES% (MANUAL) 3 % (0-0); REACTIVE LYMPHS # (MANUAL) 0.09 x10^3/uL (0-0); REACTIVE LYMPHS % (MANUAL) 1 % (0-0); SEG#(MANUAL) 4.91 x10^3/uL (1.8-6.8); SEGS% (MANUAL) 54 % (42-75)
[2020-05-30 06:19] LABS: <PLATELET ESTIMATE> ADEQUATE; <PLT MORPHOLOGY> NORMAL PLT MORPH; ANISOCYTOSIS 1+; MICROCYTOSIS 1+; OVALOCYTES 1+; POLYCHROMASIA 1+; TEAR DROPS 1+
[2020-05-30 08:29] VITALS: BP 167/89
[2020-05-30] MEDS: SENNA/DOCUSATE TABLET PO SCH ×2 (09:00→09:08)
[2020-05-30] MEDS: RUXOLITINIB PHOSPHATE 15 MG PO SCH ×2 (09:00→20:19)
[2020-05-30] MEDS: SERTRALINE 100MG TABLET PO SCH (09:00)
[2020-05-30] MEDS: COLCHICINE 0.6 MG CAPSULE PO SCH (09:05)
[2020-05-30] MEDS: CARVEDILOL 25 MG TABLET PO SCH ×2 (09:06→20:17)
[2020-05-30] MEDS: AMLODIPINE 10 MG TAB PO SCH (09:07)
[2020-05-30] MEDS: FUROSEMIDE 20 MG/2 ML IV SCH ×2 (09:07→16:42)
[2020-05-30] MEDS: FERROUS SULFATE 325 MG TABLET PO SCH (09:07)
[2020-05-30] MEDS: ASPIRIN 81 MG TABLET EC PO SCH (09:07)
[2020-05-30] MEDS: INSULIN GLARGINE 100 UNITS/ML, PEN SQ-INSULIN SCH ×2 (09:08→20:28)
[2020-05-30] MEDS: SODIUM CHLORIDE FLUSH 10ML SYR IVF SCH ×2 (09:09→20:32)
[2020-05-30 13:14] VITALS: BP 160/68
[2020-05-30 18:25] VITALS: BP 153/84
[2020-05-30] MEDS: ATORVASTATIN 40 MG TABLET PO SCH (20:17)
[2020-05-30] MEDS: EZETIMIBE 10 MG TABLET PO SCH (20:17)
[2020-05-30] MEDS ORDERED: LORazepam 2 MG/ML, 1ML IVPush ONE (21:30)
[2020-05-31 00:35] VITALS: BP 153/74
[2020-05-31 05:15] LABS: MEAN CORPUSCULAR HEMOGLOBIN 23.7 pg (27.5-34.5); MEAN CORPUSCULAR HGB CONC 32.2 g/dL (33.2-36.2); MEAN PLATELET VOLUME 7.5 fL (7.4-10.4); PLATELET COUNT 201 x10^3/uL (130-400); RED CELL DISTRIBUTION WIDTH 18.5 % (9.4-14.8)
[2020-05-31 05:28] LABS: ALBUMIN 2.4 g/dL (3.4-5.0); ANION GAP 5 mmol/L (5-15); CALCIUM 7.4 mg/dL (8.5-10.1); CHLORIDE 105 mmol/L (98-107)
[2020-05-31] MEDS: LEVOTHYROXINE 175 MCG TABLET PO SCH (05:28)
[2020-05-31] MEDS: HEPARIN 5,000 UNITS/ML, 1ML SQ SCH ×3 (05:28→21:18)
[2020-05-31 05:33] LABS: ALANINE AMINOTRANSFERASE 10 U/L (12-78); ALKALINE PHOSPHATASE 115 U/L (45-117); BILIRUBIN,TOTAL 0.5 mg/dL (0.2-1.0); CREATININE 1.78 mg/dL (0.7-1.3); TOTAL PROTEIN 4.9 g/dL (6.4-8.2)
[2020-05-31 06:17] LABS: MD YES
[2020-05-31 06:22] LABS: BANDS%(MANUAL) 6 % (0-7); BASOS#(MANUAL) 0.23 x10^3/uL (0-0.1); BASOS% (MANUAL) 2 % (0-1); LYMPH#(MANUAL) 2.09 x10^3/uL (1-3.4); LYMPHS% (MANUAL) 18 % (22-44); METAMYELOCYTES# (MANUAL) 0.46 x10^3/uL (0-0); METAMYELOCYTES% (MANUAL) 4 % (0-1); MONOS% (MANUAL) 6 % (2-9); MYELOCYTES# (MANUAL) 0.46 x10^3/uL (0-0); MYELOCYTES% (MANUAL) 4 % (0-0); REACTIVE LYMPHS # (MANUAL) 0.23 x10^3/uL (0-0); REACTIVE LYMPHS % (MANUAL) 2 % (0-0); SEG#(MANUAL) 6.73 x10^3/uL (1.8-6.8); SEGS% (MANUAL) 58 % (42-75)
[2020-05-31 06:23] LABS: ANISOCYTOSIS 1+; MICROCYTOSIS 1+; OVALOCYTES 1+; POLYCHROMASIA 1+; TEAR DROPS 1+
[2020-05-31 06:24] LABS: <PLATELET ESTIMATE> ADEQUATE; LARGE PLATELETS 1+
[2020-05-31 07:48] VITALS: BP 154/80
[2020-05-31] MEDS: INSULIN GLARGINE 100 UNITS/ML, PEN SQ-INSULIN SCH ×2 (09:00→21:00)
[2020-05-31] MEDS: SENNA/DOCUSATE TABLET PO SCH (09:00)
[2020-05-31] MEDS: FERROUS SULFATE 325 MG TABLET PO SCH (09:36)
[2020-05-31] MEDS: COLCHICINE 0.6 MG CAPSULE PO SCH (09:36)
[2020-05-31] MEDS: ASPIRIN 81 MG TABLET EC PO SCH (09:36)
[2020-05-31] MEDS: AMLODIPINE 10 MG TAB PO SCH (09:36)
[2020-05-31] MEDS: CARVEDILOL 25 MG TABLET PO SCH ×2 (09:38→21:10)
[2020-05-31] MEDS: SERTRALINE 100MG TABLET PO SCH (09:39)
[2020-05-31] MEDS: SODIUM CHLORIDE FLUSH 10ML SYR IVF SCH ×2 (09:40→21:12)
[2020-05-31] MEDS: FUROSEMIDE 20 MG/2 ML IV SCH (09:40)
[2020-05-31] MEDS: ONDANSETRON 2MG/ML, 2ML IVPush PRN (10:30)
[2020-05-31] MEDS: RUXOLITINIB PHOSPHATE 15 MG PO SCH ×2 (10:30→21:00)
[2020-05-31 13:51] VITALS: BP 124/67
[2020-05-31 17:20] VITALS: BP 119/62
[2020-05-31] MEDS: FUROSEMIDE 40 MG/4 ML IV SCH (17:22)
[2020-05-31 20:00] VITALS: BP 145/71
[2020-05-31] MEDS: EZETIMIBE 10 MG TABLET PO SCH (21:10)
[2020-05-31] MEDS: ATORVASTATIN 40 MG TABLET PO SCH (21:11)
[2020-06-01] VITALS: BP 134/74
[2020-06-01] MEDS: ACETAMINOPHEN 325 MG TABLET PO PRN ×2 (02:09→20:47)
[2020-06-01] MEDS: LEVOTHYROXINE 175 MCG TABLET PO SCH (05:29)
[2020-06-01] MEDS: HEPARIN 5,000 UNITS/ML, 1ML SQ SCH ×3 (05:30→20:31)
[2020-06-01 05:31] LABS: MEAN CORPUSCULAR HGB CONC 32.3 g/dL (33.2-36.2); MEAN PLATELET VOLUME 7.4 fL (7.4-10.4); PLATELET COUNT 247 x10^3/uL (130-400); RED BLOOD COUNT 4.86 x10^6/uL (4.38-5.82)
[2020-06-01 05:34] LABS: ALBUMIN 2.4 g/dL (3.4-5.0); ANION GAP 6 mmol/L (5-15); CALCIUM 7.1 mg/dL (8.5-10.1); CHLORIDE 105 mmol/L (98-107)
[2020-06-01 05:37] LABS: ALANINE AMINOTRANSFERASE 10 U/L (12-78); ALKALINE PHOSPHATASE 116 U/L (45-117); BILIRUBIN,TOTAL 0.5 mg/dL (0.2-1.0); CREATININE 2.06 mg/dL (0.7-1.3); TOTAL PROTEIN 4.8 g/dL (6.4-8.2)
[2020-06-01 06:05] LABS: MD YES
[2020-06-01 06:08] LABS: BAND#(MANUAL) 1.25 x10^3/uL; BANDS%(MANUAL) 9 % (0-7); BASOS#(MANUAL) 0.14 x10^3/uL (0-0.1); BASOS% (MANUAL) 1 % (0-1); EOS#(MANUAL) 0.28 x10^3/uL (0.0-0.4); EOS% (MANUAL) 2 % (1-7); METAMYELOCYTES# (MANUAL) 0.97 x10^3/uL (0-0); METAMYELOCYTES% (MANUAL) 7 % (0-1); MONOS#(MANUAL) 0.56 x10^3/uL (0.3-2.7); MONOS% (MANUAL) 4 % (2-9); MYELOCYTES# (MANUAL) 0.56 x10^3/uL (0-0); MYELOCYTES% (MANUAL) 4 % (0-0); REACTIVE LYMPHS # (MANUAL) 0.28 x10^3/uL (0-0); REACTIVE LYMPHS % (MANUAL) 2 % (0-0); SEG#(MANUAL) 6.95 x10^3/uL (1.8-6.8); SEGS% (MANUAL) 50 % (42-75)
[2020-06-01 06:11] LABS: LYMPH#(MANUAL) 2.78 x10^3/uL (1-3.4); LYMPHS% (MANUAL) 20 % (22-44)
[2020-06-01 06:12] LABS: ANISOCYTOSIS 1+; BLASTS # (MANUAL) 0.14 x10^3/uL (0-0); MICROCYTOSIS 1+; POLYCHROMASIA 1+
[2020-06-01 06:13] LABS: <PLATELET ESTIMATE> ADEQUATE; BLASTS % (MANUAL) 1 % (0-0); LARGE PLATELETS 1+; TEAR DROPS 1+
[2020-06-01] MEDS: FUROSEMIDE 40 MG/4 ML IV SCH ×2 (07:30→20:31)
[2020-06-01 07:33] VITALS: BP 158/79
[2020-06-01 08:58] VITALS: BP 154/74
[2020-06-01] MEDS: FERROUS SULFATE 325 MG TABLET PO SCH (08:59)
[2020-06-01] MEDS: ASPIRIN 81 MG TABLET EC PO SCH (08:59)
[2020-06-01] MEDS: COLCHICINE 0.6 MG CAPSULE PO SCH (08:59)
[2020-06-01] MEDS: SENNA/DOCUSATE TABLET PO SCH (09:00)
[2020-06-01] MEDS: SERTRALINE 100MG TABLET PO SCH (09:00)
[2020-06-01] MEDS: CARVEDILOL 25 MG TABLET PO SCH ×2 (09:00→20:32)
[2020-06-01] MEDS ORDERED: LOSARTAN 50MG TABLET PO SCH (09:00)
[2020-06-01] MEDS: SODIUM CHLORIDE FLUSH 10ML SYR IVF SCH ×2 (09:01→20:33)
[2020-06-01] MEDS: RUXOLITINIB PHOSPHATE 15 MG PO SCH ×2 (09:02→20:38)
[2020-06-01] MEDS: INSULIN GLARGINE 100 UNITS/ML, PEN SQ-INSULIN SCH ×2 (09:05→20:42)
[2020-06-01] MEDS: ONDANSETRON 2MG/ML, 2ML IVPush PRN (10:22)
[2020-06-01 13:48] VITALS: BP 137/78
[2020-06-01] MEDS ORDERED: ALBUMIN HUMAN 5% 250 ML IV SCH (16:30)
[2020-06-01] MEDS ORDERED: ALBUMIN HUMAN 25% 50 ML IV SCH (18:00)
[2020-06-01] MEDS ORDERED: ALBUMIN HUMAN 25% 100 ML ONE (18:27)
[2020-06-01] MEDS: ALBUMIN HUMAN 25% 100 ML IV SCH (18:58)
[2020-06-01 19:53] VITALS: BP 138/72
[2020-06-01] MEDS: EZETIMIBE 10 MG TABLET PO SCH (20:31)
[2020-06-01] MEDS: ATORVASTATIN 40 MG TABLET PO SCH (20:32)
[2020-06-02 01:27] VITALS: BP 132/84
[2020-06-02] MEDS: HEPARIN 5,000 UNITS/ML, 1ML SQ SCH ×3 (05:57→21:19)
[2020-06-02] MEDS: LEVOTHYROXINE 175 MCG TABLET PO SCH (05:57)
[2020-06-02] MEDS: ALBUMIN HUMAN 25% 100 ML IV SCH ×2 (06:26→17:14)
[2020-06-02 06:59] VITALS: BP 162/78
[2020-06-02 07:08] LABS: MEAN CORPUSCULAR HGB CONC 32.5 g/dL (33.2-36.2); MEAN PLATELET VOLUME 7.7 fL (7.4-10.4); PLATELET COUNT 288 x10^3/uL (130-400); RED BLOOD COUNT 4.86 x10^6/uL (4.38-5.82); RED CELL DISTRIBUTION WIDTH 18.4 % (9.4-14.8)
[2020-06-02 07:12] LABS: CHLORIDE 102 mmol/L (98-107)
[2020-06-02 07:19] LABS: ALANINE AMINOTRANSFERASE 10 U/L (12-78); ALBUMIN 2.8 g/dL (3.4-5.0); ALKALINE PHOSPHATASE 108 U/L (45-117); ANION GAP 8 mmol/L (5-15); BILIRUBIN,TOTAL 0.6 mg/dL (0.2-1.0); CALCIUM 7.1 mg/dL (8.5-10.1); CREATININE 2.19 mg/dL (0.7-1.3); TOTAL PROTEIN 5.1 g/dL (6.4-8.2)
[2020-06-02 07:36] LABS: MD YES
[2020-06-02 07:43] LABS: BASOS#(MANUAL) 0.29 x10^3/uL (0-0.1); BASOS% (MANUAL) 2 % (0-1); EOS#(MANUAL) 0.58 x10^3/uL (0.0-0.4); EOS% (MANUAL) 4 % (1-7); LYMPH#(MANUAL) 2.63 x10^3/uL (1-3.4); LYMPHS% (MANUAL) 18 % (22-44); METAMYELOCYTES# (MANUAL) 0.58 x10^3/uL (0-0); METAMYELOCYTES% (MANUAL) 4 % (0-1); MONOS#(MANUAL) 0.44 x10^3/uL (0.3-2.7); MONOS% (MANUAL) 3 % (2-9); MYELOCYTES# (MANUAL) 0.44 x10^3/uL (0-0); MYELOCYTES% (MANUAL) 3 % (0-0); SEG#(MANUAL) 7.15 x10^3/uL (1.8-6.8); SEGS% (MANUAL) 49 % (42-75)
[2020-06-02 07:44] LABS: ANISOCYTOSIS 1+; BAND#(MANUAL) 2.34 x10^3/uL; BANDS%(MANUAL) 16 % (0-7); MICROCYTOSIS 1+; OVALOCYTES 1+; POLYCHROMASIA 1+; REACTIVE LYMPHS # (MANUAL) 0.15 x10^3/uL (0-0); REACTIVE LYMPHS % (MANUAL) 1 % (0-0); TEAR DROPS 1+
[2020-06-02 07:45] LABS: <PLATELET ESTIMATE> ADEQUATE; <PLT MORPHOLOGY> NORMAL PLT MORPH
[2020-06-02] MEDS: INSULIN GLARGINE 100 UNITS/ML, PEN SQ-INSULIN SCH (08:13)
[2020-06-02] MEDS: CARVEDILOL 25 MG TABLET PO SCH ×2 (08:15→21:19)
[2020-06-02] MEDS: ASPIRIN 81 MG TABLET EC PO SCH (08:16)
[2020-06-02] MEDS: FERROUS SULFATE 325 MG TABLET PO SCH (08:16)
[2020-06-02] MEDS: FUROSEMIDE 40 MG/4 ML IV SCH ×2 (08:16→17:13)
[2020-06-02] MEDS: COLCHICINE 0.6 MG CAPSULE PO SCH (08:16)
[2020-06-02] MEDS: RUXOLITINIB PHOSPHATE 15 MG PO SCH ×2 (08:17→21:00)
[2020-06-02] MEDS: ONDANSETRON 2MG/ML, 2ML IVPush PRN (08:17)
[2020-06-02] MEDS: SODIUM CHLORIDE FLUSH 10ML SYR IVF SCH ×2 (08:18→21:20)
[2020-06-02] MEDS: SENNA/DOCUSATE TABLET PO SCH (08:19)
[2020-06-02] MEDS: predniSOLONE OPHTH SUSP 1%, 5ML EACHEYE SCH (09:00)
[2020-06-02 11:53] LABS: CLOSTRIDIUM DIFFICILE ANTIGEN POSITIVE; CLOSTRIDIUM DIFFICILE TOXIN POSITIVE (Negative)
[2020-06-02] MEDS ORDERED: PHARMACY MAY ADJ FOR RENAL FX MC PRN (12:30)
[2020-06-02] MEDS: HYDROcodone/APAP 5/325 TABLET PO PRN ×2 (12:54→18:19)
[2020-06-02] MEDS: VANCOMYCIN 50 MG/ML ORAL SUSP PO SCH ×2 (12:59→18:18)
[2020-06-02] MEDS: SERTRALINE 100MG TABLET PO SCH (13:03)
[2020-06-02 13:47] VITALS: BP 146/76
[2020-06-02] MEDS: LATANOPROST OPHTH 0.005%, 2.5ML EACHEYE SCH (21:00)
[2020-06-02 21:16] VITALS: BP 172/90
[2020-06-02] MEDS: ATORVASTATIN 40 MG TABLET PO SCH (21:19)
[2020-06-02] MEDS: EZETIMIBE 10 MG TABLET PO SCH (21:19)
[2020-06-03 00:13] VITALS: BP 156/89
[2020-06-03] MEDS: VANCOMYCIN 50 MG/ML ORAL SUSP PO SCH ×4 (00:44→17:54)
[2020-06-03] MEDS: LEVOTHYROXINE 175 MCG TABLET PO SCH (05:11)
[2020-06-03] MEDS: HEPARIN 5,000 UNITS/ML, 1ML SQ SCH ×3 (05:11→21:08)
[2020-06-03 05:38] LABS: MEAN CORPUSCULAR HEMOGLOBIN 23.7 pg (27.5-34.5); MEAN PLATELET VOLUME 7.4 fL (7.4-10.4); PLATELET COUNT 330 x10^3/uL (130-400); RED BLOOD COUNT 5.12 x10^6/uL (4.38-5.82); RED CELL DISTRIBUTION WIDTH 18.3 % (9.4-14.8)
[2020-06-03 05:52] LABS: ALANINE AMINOTRANSFERASE 15 U/L (12-78); ALBUMIN 3.1 g/dL (3.4-5.0); ANION GAP 7 mmol/L (5-15); CALCIUM 7.1 mg/dL (8.5-10.1); CHLORIDE 105 mmol/L (98-107); CREATININE 2.29 mg/dL (0.7-1.3)
[2020-06-03 05:54] LABS: ALKALINE PHOSPHATASE 111 U/L (45-117); BILIRUBIN,TOTAL 0.5 mg/dL (0.2-1.0); TOTAL PROTEIN 5.3 g/dL (6.4-8.2)
[2020-06-03 05:58] LABS: MD YES
[2020-06-03 06:01] LABS: ANISOCYTOSIS 1+; BAND#(MANUAL) 1.06 x10^3/uL; BANDS%(MANUAL) 7 % (0-7); BASOS#(MANUAL) 0.46 x10^3/uL (0-0.1); BASOS% (MANUAL) 3 % (0-1); EOS% (MANUAL) 2 % (1-7); LYMPH#(MANUAL) 3.19 x10^3/uL (1-3.4); LYMPHS% (MANUAL) 21 % (22-44); METAMYELOCYTES# (MANUAL) 0.15 x10^3/uL (0-0); METAMYELOCYTES% (MANUAL) 1 % (0-1); MONOS#(MANUAL) 0.15 x10^3/uL (0.3-2.7); MONOS% (MANUAL) 1 % (2-9); MYELOCYTES# (MANUAL) 0.76 x10^3/uL (0-0); MYELOCYTES% (MANUAL) 5 % (0-0); REACTIVE LYMPHS # (MANUAL) 0.15 x10^3/uL (0-0); REACTIVE LYMPHS % (MANUAL) 1 % (0-0); SEG#(MANUAL) 8.97 x10^3/uL (1.8-6.8); SEGS% (MANUAL) 59 % (42-75)
[2020-06-03 06:02] LABS: <PLATELET ESTIMATE> ADEQUATE; <PLT MORPHOLOGY> NORMAL PLT MORPH; MICROCYTOSIS 1+; OVALOCYTES 1+; POLYCHROMASIA 1+
[2020-06-03 07:02] VITALS: BP 169/90
[2020-06-03] MEDS: FUROSEMIDE 40 MG/4 ML IV SCH ×2 (08:15→16:12)
[2020-06-03] MEDS: ASPIRIN 81 MG TABLET EC PO SCH (08:15)
[2020-06-03] MEDS: COLCHICINE 0.6 MG CAPSULE PO SCH (08:16)
[2020-06-03] MEDS: SERTRALINE 100MG TABLET PO SCH (08:17)
[2020-06-03] MEDS: FERROUS SULFATE 325 MG TABLET PO SCH (08:17)
[2020-06-03] MEDS: SENNA/DOCUSATE TABLET PO SCH (08:17)
[2020-06-03] MEDS: SODIUM CHLORIDE FLUSH 10ML SYR IVF SCH ×2 (08:18→21:08)
[2020-06-03] MEDS: predniSOLONE OPHTH SUSP 1%, 5ML EACHEYE SCH (08:18)
[2020-06-03] MEDS: RUXOLITINIB PHOSPHATE 15 MG PO SCH ×2 (08:19→21:00)
[2020-06-03] MEDS: CARVEDILOL 25 MG TABLET PO SCH ×2 (08:23→21:08)
[2020-06-03] MEDS: ONDANSETRON 2MG/ML, 2ML IVPush PRN (08:41)
[2020-06-03 14:16] VITALS: BP 158/85
[2020-06-03] MEDS ORDERED: AMLODIPINE 5 MG TABLET PO SCH (16:00)
[2020-06-03] MEDS: ALBUMIN HUMAN 25% 100 ML IV SCH (16:28)
[2020-06-03 19:37] VITALS: BP 162/84
[2020-06-03] MEDS: LATANOPROST OPHTH 0.005%, 2.5ML EACHEYE SCH (21:00)
[2020-06-03] MEDS: EZETIMIBE 10 MG TABLET PO SCH (21:07)
[2020-06-03] MEDS: ATORVASTATIN 40 MG TABLET PO SCH (21:07)
[2020-06-04] MEDS: ALBUMIN HUMAN 25% 100 ML IV SCH ×2 (00:22→08:20)
[2020-06-04] MEDS: VANCOMYCIN 50 MG/ML ORAL SUSP PO SCH ×4 (00:32→18:11)
[2020-06-04 01:07] VITALS: BP 144/70
[2020-06-04] MEDS: HEPARIN 5,000 UNITS/ML, 1ML SQ SCH ×3 (05:32→20:55)
[2020-06-04] MEDS: LEVOTHYROXINE 175 MCG TABLET PO SCH (05:32)
[2020-06-04 06:05] LABS: MEAN CORPUSCULAR HEMOGLOBIN 23.4 pg (27.5-34.5); MEAN PLATELET VOLUME 7.1 fL (7.4-10.4); PLATELET COUNT 349 x10^3/uL (130-400); RED BLOOD COUNT 5.21 x10^6/uL (4.38-5.82); RED CELL DISTRIBUTION WIDTH 18.2 % (9.4-14.8)
[2020-06-04 06:06] LABS: ALBUMIN 3.4 g/dL (3.4-5.0); CHLORIDE 106 mmol/L (98-107)
[2020-06-04 06:12] LABS: ALANINE AMINOTRANSFERASE 18 U/L (12-78); ALKALINE PHOSPHATASE 103 U/L (45-117); ANION GAP 9 mmol/L (5-15); BILIRUBIN,TOTAL 0.7 mg/dL (0.2-1.0); CREATININE 1.96 mg/dL (0.7-1.3); TOTAL PROTEIN 5.4 g/dL (6.4-8.2)
[2020-06-04 06:40] LABS: MD YES
[2020-06-04 06:49] LABS: BAND#(MANUAL) 1.31 x10^3/uL; BANDS%(MANUAL) 8 % (0-7); BASOS#(MANUAL) 0.49 x10^3/uL (0-0.1); BASOS% (MANUAL) 3 % (0-1); BLASTS # (MANUAL) 0.16 x10^3/uL (0-0); EOS#(MANUAL) 0.33 x10^3/uL (0.0-0.4); EOS% (MANUAL) 2 % (1-7); LYMPH#(MANUAL) 3.28 x10^3/uL (1-3.4); LYMPHS% (MANUAL) 20 % (22-44); METAMYELOCYTES# (MANUAL) 0.98 x10^3/uL (0-0); METAMYELOCYTES% (MANUAL) 6 % (0-1); MONOS#(MANUAL) 0.33 x10^3/uL (0.3-2.7); MONOS% (MANUAL) 2 % (2-9); MYELOCYTES# (MANUAL) 0.49 x10^3/uL (0-0); MYELOCYTES% (MANUAL) 3 % (0-0); SEG#(MANUAL) 9.02 x10^3/uL (1.8-6.8); SEGS% (MANUAL) 55 % (42-75)
[2020-06-04 06:50] LABS: <PLATELET ESTIMATE> ADEQUATE; ANISOCYTOSIS 1+; MICROCYTOSIS 1+; POLYCHROMASIA 1+
[2020-06-04 06:52] LABS: BLASTS % (MANUAL) 1 % (0-0)
[2020-06-04 06:53] LABS: <PLT MORPHOLOGY> NORMAL PLT MORPH
[2020-06-04 07:29] VITALS: BP 184/79
[2020-06-04] MEDS: FUROSEMIDE 40 MG/4 ML IV SCH (08:20)
[2020-06-04] MEDS: COLCHICINE 0.6 MG CAPSULE PO SCH (08:20)
[2020-06-04] MEDS: ASPIRIN 81 MG TABLET EC PO SCH (08:20)
[2020-06-04] MEDS: AMLODIPINE 10 MG TAB PO SCH (08:21)
[2020-06-04] MEDS: SERTRALINE 100MG TABLET PO SCH (08:21)
[2020-06-04] MEDS: CARVEDILOL 25 MG TABLET PO SCH ×2 (08:21→20:55)
[2020-06-04] MEDS: FERROUS SULFATE 325 MG TABLET PO SCH (08:22)
[2020-06-04] MEDS: SENNA/DOCUSATE TABLET PO SCH (08:23)
[2020-06-04] MEDS: predniSOLONE OPHTH SUSP 1%, 5ML EACHEYE SCH (08:30)
[2020-06-04] MEDS: SODIUM CHLORIDE FLUSH 10ML SYR IVF SCH ×2 (08:31→20:56)
[2020-06-04] MEDS: RUXOLITINIB PHOSPHATE 15 MG PO SCH ×2 (08:33→20:57)
[2020-06-04 15:18] VITALS: BP 129/75
[2020-06-04 20:12] VITALS: BP 182/77
[2020-06-04] MEDS: ATORVASTATIN 40 MG TABLET PO SCH (20:55)
[2020-06-04] MEDS: EZETIMIBE 10 MG TABLET PO SCH (20:55)
[2020-06-04] MEDS: LATANOPROST OPHTH 0.005%, 2.5ML EACHEYE SCH (21:00)
[2020-06-05 01:18] VITALS: BP 148/72
[2020-06-05] MEDS: VANCOMYCIN 50 MG/ML ORAL SUSP PO SCH ×3 (01:25→13:48)
[2020-06-05] MEDS: ONDANSETRON 2MG/ML, 2ML IVPush PRN (01:37)
[2020-06-05 05:17] LABS: MEAN CORPUSCULAR HEMOGLOBIN 23.8 pg (27.5-34.5); MEAN CORPUSCULAR HGB CONC 32.1 g/dL (33.2-36.2); MEAN PLATELET VOLUME 7.4 fL (7.4-10.4); PLATELET COUNT 385 x10^3/uL (130-400); RED BLOOD COUNT 5.17 x10^6/uL (4.38-5.82); RED CELL DISTRIBUTION WIDTH 18.5 % (9.4-14.8)
[2020-06-05 05:26] LABS: CALCIUM 7.5 mg/dL (8.5-10.1); CHLORIDE 105 mmol/L (98-107)
[2020-06-05] MEDS: LEVOTHYROXINE 175 MCG TABLET PO SCH (05:28)
[2020-06-05] MEDS: HEPARIN 5,000 UNITS/ML, 1ML SQ SCH ×2 (05:28→13:00)
[2020-06-05 05:29] LABS: ANION GAP 8 mmol/L (5-15); CREATININE 1.59 mg/dL (0.7-1.3)
[2020-06-05 05:54] LABS: MD YES
[2020-06-05 05:56] LABS: BAND#(MANUAL) 1.99 x10^3/uL; BANDS%(MANUAL) 12 % (0-7); BASOS#(MANUAL) 0.33 x10^3/uL (0-0.1); BASOS% (MANUAL) 2 % (0-1); EOS% (MANUAL) 3 % (1-7); LYMPH#(MANUAL) 2.32 x10^3/uL (1-3.4); LYMPHS% (MANUAL) 14 % (22-44); MONOS#(MANUAL) 0.33 x10^3/uL (0.3-2.7); MONOS% (MANUAL) 2 % (2-9); MYELOCYTES# (MANUAL) 1.16 x10^3/uL (0-0); MYELOCYTES% (MANUAL) 7 % (0-0); SEG#(MANUAL) 9.96 x10^3/uL (1.8-6.8); SEGS% (MANUAL) 60 % (42-75)
[2020-06-05 05:57] LABS: <PLATELET ESTIMATE> ADEQUATE; <PLT MORPHOLOGY> NORMAL PLT MORPH; ANISOCYTOSIS 1+; MICROCYTOSIS 1+
[2020-06-05 07:54] VITALS: BP 176/78
[2020-06-05] MEDS ORDERED: VANC250C3 PO (08:35)
[2020-06-05] MEDS: SODIUM CHLORIDE FLUSH 10ML SYR IVF SCH (09:00)
[2020-06-05] MEDS: RUXOLITINIB PHOSPHATE 15 MG PO SCH (09:00)
[2020-06-05] MEDS: SENNA/DOCUSATE TABLET PO SCH (09:00)
[2020-06-05] MEDS ORDERED: FUROSEMIDE 40 MG/4 ML IV SCH (09:00)
[2020-06-05] MEDS: predniSOLONE OPHTH SUSP 1%, 5ML EACHEYE SCH (09:00)
[2020-06-05] MEDS: FERROUS SULFATE 325 MG TABLET PO SCH (09:20)
[2020-06-05] MEDS: ASPIRIN 81 MG TABLET EC PO SCH (09:20)
[2020-06-05] MEDS: SERTRALINE 100MG TABLET PO SCH (09:20)
[2020-06-05] MEDS: LACTOBACILLUS CHEW TABLET PO SCH ×2 (09:20→16:00)
[2020-06-05] MEDS: COLCHICINE 0.6 MG CAPSULE PO SCH (09:20)
[2020-06-05] MEDS: AMLODIPINE 10 MG TAB PO SCH (09:20)
[2020-06-05] MEDS: CARVEDILOL 25 MG TABLET PO SCH (09:20)
[2020-06-05 13:58] VITALS: BP 139/68
== END 2020-06-05 16:34 | disposition home or self-care (01) | DRG 291 ==
LOC: ED 17:40 → EDIP 18:28 → 5SO 20:52
PROVIDERS: ADMIT Internal Medicine; ATTEND Family Medicine
DX: I13.0 Hypertensive heart and chronic kidney disease with heart failure and stage 1 through stage 4 chronic kidney disease, or unspecified chronic kidney disease (principal); I50.33 Acute on chronic diastolic (congestive) heart failure; J96.01 Acute respiratory failure with hypoxia; N18.4 Chronic kidney disease, stage 4 (severe); A04.72 Enterocolitis due to Clostridium difficile, not specified as recurrent; N17.9 Acute kidney failure, unspecified; D50.9 Iron deficiency anemia, unspecified; E03.9 Hypothyroidism, unspecified; E11.22 Type 2 diabetes mellitus with diabetic chronic kidney disease; I87.2 Venous insufficiency (chronic) (peripheral); E11.51 Type 2 diabetes mellitus with diabetic peripheral angiopathy without gangrene; I27.29 Other secondary pulmonary hypertension; M10.9 Gout, unspecified; D46.9 Myelodysplastic syndrome, unspecified; E66.9 Obesity, unspecified; E88.09 Other disorders of plasma-protein metabolism, not elsewhere classified; E78.00 Pure hypercholesterolemia, unspecified; N50.89 Other specified disorders of the male genital organs; Z79.4 Long term (current) use of insulin; Z88.5 Allergy status to narcotic agent; Z88.8 Allergy status to other drugs, medicaments and biological substances; Z79.899 Other long term (current) drug therapy; Z86.73 Personal history of transient ischemic attack (TIA), and cerebral infarction without residual deficits; Z89.512 Acquired absence of left leg below knee; Z89.511 Acquired absence of right leg below knee; Z85.6 Personal history of leukemia; Z82.49 Family history of ischemic heart disease and other diseases of the circulatory system; Z68.31 Body mass index [BMI] 31.0-31.9, adult
CPT/HCPCS: 36415; 71045; 76770; 78582; 80048; 80053; 81001; 82728; 82962; 83036; 83540; 83550; 83880; 84443; 84484; 85025; 85379; 87040; 87086; 87324; 93005; 93306; 96374; 99285; G0378; J1644; J1940; J2405; J3370; P9041; P9047; Q0162; A9540; A9558; J1815; P9045